=== PATIENT | female | born 1945 | race Caucasian/White ===

== ENCOUNTER → 2016-08-23 | Outpatient (CLI) | payer MEDICARE, OTHER ==
--- NOTE | 2016-08-23 11:57 | WWHP ---
DATE OF SERVICE: 08/23/2016 CHIEF COMPLAINT: The patient is here for her routine gynecologic exam and mammogram. HPI: This is a 71-year-old, G2, P2 with an LMP of 1995. The patient is without gynecologic complaints. 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 MEDICATIONS: 1. Levothyroxine 75 mcg daily. 2. Liothyronine 5 mcg daily. 3. Spironolactone 25 mg daily. 4. Multivitamin half tablet daily. 5. Garlique supplement daily. 6. Vitamin B12, 5000 mcg sublingually daily. 7. Probiotic 1 daily. 8. Iron supplement half tablet daily. 9. Vitamin D3, 2000 units daily. 10. Biotin 1000 mcg daily. 11. Fiber supplement daily. ALLERGIES: ASPIRIN, PENICILLIN and SULFA. 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 SOCIAL HISTORY: She quit smoking in the 1980s and denies alcohol and drug use. 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 REVIEW OF SYSTEMS: Weight has been stable. She denies respiratory, cardiac, or GI problems. She denies maltreatment or falling and also denies any significant problems with urinary leakage. PHYSICAL EXAM: Blood pressure 149/84. Height 5 feet 7 inches. Weight 187 pounds. Temperature 97.9, pulse 70. This is a well-developed, well-nourished white female who is alert and oriented x3 in no acute distress. HEENT is within normal limits. NECK: Supple without mass or thyromegaly. CHEST AND LUNGS: Clear to auscultation. HEART: Regular rate and rhythm. Breasts are without mass or discharge. Axillary exam is negative for adenopathy. BACK: Negative for CVA tenderness. ABDOMEN: Soft, nontender, without palpable masses. PELVIC EXAM: External genitalia reveals mild to moderate atrophy without lesions. Cervix and vagina reveal moderate atrophy without lesions. There is no evidence of prolapse. The uterus is midposition, nongravid size and nontender. There are no palpable adnexal masses or tenderness. Rectovaginal exam is negative for mass or tenderness and is negative for occult blood. EXTREMITIES: Nontender. IMPRESSION: 1. A 71-year-old menopausal female with normal gynecologic exam. 2. History of left salpingo-oophorectomy for mucinous low malignant potential tumor in 2000 with no evidence of recurrence. PLAN: 1. Pap smear was deferred, since she had normal one last year. 2. Self breast examination was discussed. 3. Mammogram will be done today. 4. Tumor marker testing will be done yearly and this will include CEA, CA19-9 and CA 125. These will be drawn today. 5. She states bone density testing was done in 2016 and was normal per the patient. 6. She will return in one year.
[2016-08-23 12:37] LABS: Cancer Anitgen 125 <5.5 U/mL (<35.1)
--- NOTE | 2016-08-24 09:45 | MM ---
Reason for exam: screening (asymptomatic). Last mammogram was performed 1 year and 1 month ago. History: Patient is postmenopausal. Physical Findings: A clinical breast exam by your physician is recommended on an annual basis and results should be correlated with mammographic findings. MG 3D Screening Mammo W/Cad Bilateral CC and MLO view(s) were taken. Prior study comparison: August 04, 2015, bilateral MG screening mammo w CAD. July 31, 2014, bilateral MG diagnostic mammo w CAD LINDEN. The breast tissue is heterogeneously dense. This may lower the sensitivity of mammography. There is no discrete abnormality. No significant changes when compared with prior studies. ASSESSMENT: Negative, BI-RAD 1 RECOMMENDATION: Routine screening mammogram of both breasts in 1 year.
== END ==
LOC: WWCWWP 09:16
PROVIDERS: ATTEND Obstetrics & Gynecology
DX: Z12.31 Encounter for screening mammogram for malignant neoplasm of breast (principal); C56.9 Malignant neoplasm of unspecified ovary
CPT/HCPCS: 86304; 82378; 86301; 77063; 36415; G0202

== ENCOUNTER → 2017-03-31 | Outpatient (CLI) | payer MEDICARE, OTHER ==
[2017-03-31 09:09] LABS: ALT 33 U/L (9-52); AST 30 U/L (14-36); GGT 34 U/L (12-43)
[2017-04-03 15:38] LABS: Hepatitis B Virus DNA Not detected (Not detected); Hepatitis B Virus DNA, Quant <10 IU/mL (<10); Log HBV IU/mL <1.00 (<1.00)
== END | disposition home or self-care (01) ==
LOC: LABWHC1 08:19
PROVIDERS: ATTEND Internal Medicine Infectious Disease
DX: R76.8 Other specified abnormal immunological findings in serum (principal); Z88.1 Allergy status to other antibiotic agents; Z88.8 Allergy status to other drugs, medicaments and biological substances; Z88.2 Allergy status to sulfonamides; Z88.0 Allergy status to penicillin; Z91.018 Allergy to other foods; Z91.048 Other nonmedicinal substance allergy status; Z88.6 Allergy status to analgesic agent
CPT/HCPCS: 36415; 82977; 84450; 84460; 87517

== ENCOUNTER → 2017-09-06 | Outpatient (CLI) | payer MEDICARE, OTHER ==
[2017-09-06 08:08] VITALS: BP 169/93; PULSE 81; TEMP 98.2; BMI 29.2
--- NOTE | 2017-09-06 09:06 | P.HPOB ---
History of Present Illness H&P Date: 09/06/17 Chief Complaint: The patient is here for her routine gynecologic exam and mammogram. This is a 72-year-old with an LMP of 1995. The patient has a history of a low malignant potential ovarian tumor which was removed from the left side in 2000. This was done with a LSO in 2000. She is without gynecologic complaints. Review of Systems The patient states her weight has fluctuated by about 10 pounds over the last year, but her weight is the same as her exam from one year ago. She denies respiratory, cardiac or G.I. problems. She denies maltreatment or falling. she denies any significant problems with urinary leakage. Past Medical History Past Medical History: Hypertension, Thyroid Disorder (Hypothyroidism) Additional Past Medical History / Comment(s): Left ovarian tumor of low malignant potential status post LSO in 2000. Also history of anxiety, irritable bowel syndrome and seasonal allergies. History of Any Multi-Drug Resistant Organisms: None Reported Past Surgical History: Section (Times 2) Additional Past Surgical History / Comment(s): left tube and ovary removed 2000. Colonoscopy in 2010 and 2015. 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 She is and is not sexually active. - Past Family History Father Family Medical History: Myocardial Infarction ([place]) Additional Family Medical History / Comment(s): larynx cancer Mother Family Medical History: Diabetes Mellitus Medications and Allergies Home Medications Medication Instructions Recorded Confirmed Type Cholecalciferol (Vitamin D3) 2,000 unit PO 09/01/17 History [Vitamin D3] Cyanocobalamin [Vitamin B-12] 500 mcg PO 09/01/17 History Garlic 1 each PO 09/01/17 History L.acidoph,Paracasei, B.lactis 1 each PO 09/01/17 History [Probiotic] Levothyroxine Sodium [Synthroid] 75 mcg PO DAILY 09/01/17 09/06/17 History Liothyronine Sodium [Cytomel] 5 mcg PO DAILY 09/01/17 09/06/17 History Multivitamins, Thera [Multivitamin 1 tab PO DAILY 09/01/17 09/06/17 History (formulary)] Spironolactone [Aldactone] 25 mg PO DAILY 09/01/17 09/06/17 History LORazepam [Ativan] 0.5 mg PO DAILY 09/06/17 09/06/17 History Allergies Allergy/AdvReac Type Severity Reaction Status Date / Time aspirin Allergy Unknown Verified 09/06/17 08:18 Penicillins Allergy Unknown Verified 09/06/17 08:18 Sulfa (Sulfonamide Allergy Unknown Verified 09/06/17 08:18 Antibiotics) Exam - Vital Signs Vital signs: Vital Signs Temp Pulse BP 09/06/17 08:02 98.2 F 81 169/93 Intake and Output 09/05/17 09/06/17 09/06/17 22:59 06:59 14:59 Other: Weight 84.822 kg Height 5'7" ,BMI 29.3 ,repeat blood pressure 136/84. This is a well-developed well-nourished white female who is alert and oriented times 3 in no acute distress. HEENT: Within normal limits. NECK: Supple without mass or thyromegaly. CHEST AND LUNGS: Clear to auscultation. HEART: Regular rate and rhythm. BREASTS: Are without mass or discharge. AXILLARY EXAM: Negative for adenopathy. BACK: Negative for CVA tenderness. ABDOMEN: Soft, nontender, without palpable masses. PELVIC EXAM: Normal external genitalia with moderate atrophy. Cervix and vagina appear normal with moderate atrophy. The cervix appears stenotic nearly flush with the vaginal wall secondary to atrophy. There is no unusual discharge. There is no evidence of prolapse. The uterus is small, midposition, nongravid size and nontender. There are no palpable adnexal masses or tenderness. RECTAL EXAM: recto vaginal exam is negative for mass or tenderness and is negative for occult blood. EXTREMITIES: Nontender. IMPRESSION: 1. 71-year-old menopausal female with normal gynecologic exam. 2. History of left ovarian tumor of low malignant potential status post LSO in 2000 with no evidence of recurrence. PLAN: 1. Pap smear was performed. 2. Self breast examination was discussed. 3. Screening mammogram will be done today. 4. Osteoporosis prevention was discussed. Bone density screening will be done today. 5. I have recommended pelvic ultrasound in addition to tumor marker testing because of her history. She is declining the pelvic ultrasound but would like to proceed with the blood tests. This will include CA125, CEA, CA19-9. 6. Her elevated blood pressure was discussed with the patient. I recommended she do home blood pressure checks on a regular basis and follow-up with Dr. Lozano for blood pressure elevations. 6. She will return one year.
--- NOTE | 2017-09-06 13:40 | BD ---
EXAMINATION TYPE: MG DEXA axial skeleton. DATE OF EXAM: 09/06/2017 COMPARISON: NONE CLINICAL HISTORY: Postmenopausal female. Osteoporosis screening. Height: 5 FT 4 IN Weight: 185 FRAX RISK QUESTIONS: Alcohol (3 or more units per day): NO Family History (Parent hip fracture): NO Glucocorticoids (More than 3mos): NO (Ex: prednisone, prednisolone, methylprednisolone, dexamethasone, and hydrocortisone). History of Fracture in Adulthood: NO Secondary Osteoporosis: 1. Type 1 Diabetes: NO 2. Hyperthyroidism: NO 3. Menopause before 45: NO 4. Malnutrition: NO 5. Chronic liver disease: NO Rheumatoid Arthritis: NO Current Tobacco Use: NO RISK FACTORS HISTORY OF: Family History of Osteoporosis: NO Active: YES Postmenopausal woman: AGE 52 MEDICATIONS: Thyroid Medications: YES Which medication: SYNTHROID AND CITOMIL How Lon-6 YEARS Additional Medications: SYNTHROID, CITOMIL, D3 MULTI, ATIVAN, H2O PILL, Additional History: EXAM MEASUREMENTS: Bone mineral densitometry was performed using the [facility]. Bone mineral density as measured about the Lumbar spine is: ----- L1-L4(G/cm2): 1.076 T Score Values are as follows: ----- L2: -1.6 ----- L3: -1.0 ----- L4: -0.3 ----- L1-L4: -0.9 Bone mineral density has: INCREASED 0.8 % since study of: 2010 Bone mineral density about the R hip (g/cm2): 0.925 Bone mineral density about the L hip (g/cm2): 0.940 T Score values are as follows: -----R Neck: -0.8 -----L Neck: -0.7 -----R Total: -0.9 -----L Total: -0.7 Bone mineral density has: INCREASED 0.6 % since study of: 2010 IMPRESSION: Osteopenia (T Score between -2.5 and -1) with regards to the lumbar spine. There is slightly increased risk of fracture and the patient may be considered for treatment. Re-Screen 2-5 years. NOTE: T-SCORE=SD OF THE YOUNG ADULT MEAN.
[2017-09-06 16:46] LABS: Cancer Antigen 19-9 5.5 U/mL (0.0-34.9)
--- NOTE | 2017-09-07 10:13 | MM ---
Reason for exam: screening (asymptomatic). Last mammogram was performed 1 year ago. History: Patient is postmenopausal. Physical Findings: A clinical breast exam by your physician is recommended on an annual basis and results should be correlated with mammographic findings. MG 3D Screening Mammo W/Cad Bilateral CC and MLO view(s) were taken. Prior study comparison: August 23, 2016, bilateral MG 3d screening mammo w/cad. August 04, 2015, bilateral MG screening mammo w CAD. The breast tissue is heterogeneously dense. This may lower the sensitivity of mammography. There is no discrete abnormality. No significant changes when compared with prior studies. ASSESSMENT: Negative, BI-RAD 1 RECOMMENDATION: Routine screening mammogram of both breasts in 1 year.
== END | disposition home or self-care (01) ==
LOC: WWCWWP 07:26
PROVIDERS: ATTEND Obstetrics & Gynecology
DX: Z12.31 Encounter for screening mammogram for malignant neoplasm of breast (principal); M85.88 Other specified disorders of bone density and structure, other site; C56.9 Malignant neoplasm of unspecified ovary; Z78.0 Asymptomatic menopausal state
CPT/HCPCS: 36415; 77063; 77067; 77080; 82378; 86301; 86304

== ENCOUNTER → 2018-10-09 | Outpatient (CLI) | payer MEDICARE, OTHER ==
[2018-10-09 16:03] VITALS: BP 175/82; PULSE 79; RESP 16; TEMP 96.4; BMI 26.4
--- NOTE | 2018-10-09 17:36 | P.HPOB ---
History of Present Illness H&P Date: 10/09/18 Chief Complaint: The patient is here for her routine gynecologic exam and ma mmogram. This is a 73-year-old with an LMP of 1995. The patient is without gynecologic complaints. 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 This was a mucinous tumor of low malignant potential. Review of Systems She has lost about 18 pounds over the last year and she attributes this to eating more salad and dietary changes. She denies respiratory, cardiac and G.I. problems. She denies maltreatment or problems with falling. : she denies any significant problems with urinary leakage, but occasionally has to get the bathroom right way. She attributes this to being put on a diuretic and drinking more water. 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 History of Any Multi-Drug Resistant Organisms: None Reported Past Surgical History: Section Additional Past Surgical History / Comment(s): left tube and ovary removed 2000. Colonoscopy in 2010 and 2015. x2. Past Psychological History: Anxiety Smoking Status: Former smoker Past Alcohol Use History: None Reported Past Drug Use History: None Reported Additional History: Quit smoking in the 1980s. She is and is not seeing any way this time. 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 - Past Family History Brother(s) Additional Family Medical History / Comment(s): larynx cancer Father Family Medical History: Myocardial Infarction ([place]) Additional Family Medical History / Comment(s): larynx cancer Mother Family Medical History: Diabetes Mellitus Son(s) Additional Family Medical History / Comment(s): Pancreatic cancer. Medications and Allergies Home Medications Medication Instructions Recorded Confirmed Type Cholecalciferol (Vitamin D3) 2,000 unit PO 09/01/17 History [Vitamin D3] Cyanocobalamin [Vitamin B-12] 500 mcg PO DAILY 09/01/17 10/09/18 History L.acidoph,Paracasei, B.lactis 1 each PO 09/01/17 History [Probiotic] Levothyroxine Sodium [Synthroid] 75 mcg PO DAILY 09/01/17 10/09/18 History Liothyronine Sodium [Cytomel] 5 mcg PO DAILY 09/01/17 10/09/18 History Multivitamins, Thera [Multivitamin 1 tab PO DAILY 09/01/17 10/09/18 History (formulary)] Spironolactone [Aldactone] 25 mg PO DAILY 09/01/17 10/09/18 History LORazepam [Ativan] 0.5 mg PO DAILY 09/06/17 10/09/18 History Allergies Allergy/AdvReac Type Severity Reaction Status Date / Time aspirin Allergy Unknown Verified 10/09/18 15:57 Penicillins Allergy Unknown Verified 10/09/18 15:57 Sulfa (Sulfonamide Allergy Unknown Verified 10/09/18 15:57 Antibiotics) Exam Vital Signs Temp Pulse Resp BP Pulse Ox 10/09/18 15:59 96.4 F L 79 16 175/82 96 Intake and Output 10/09/18 10/09/18 10/09/18 06:59 14:59 22:59 Other: Weight 76.657 kg Repeat blood pressure 148/80, height 5'7", weight 169 pounds, BMI 26.5. This is a well-developed well-nourished white female who is alert and oriented times 3 in no acute distress. HEENT: Within normal limits. NECK: Supple without mass or thyromegaly. CHEST AND LUNGS: Clear to auscultation. HEART: Regular rate and rhythm. BREASTS: Are without mass or discharge. AXILLARY EXAM: Negative for adenopathy. BACK: Negative for CVA tenderness. ABDOMEN: Soft, nontender, without palpable masses. PELVIC EXAM: Normal external genitalia with moderate atrophy. Cervix and vagina appear normal with moderate atrophy. There is no unusual discharge. There is no evidence of prolapse. The uterus is midposition, nongravid size and nontender. There are no palpable adnexal masses or tenderness. RECTAL EXAM: rectovaginal exam is negative for mass or tenderness and is negative for occult blood. EXTREMITIES: Nontender. IMPRESSION: 1. 73 year old menopausal female with normal gynecologic exam. 2. History of left mucinous low malignant potential tumor status post LSO in 2000 with no evidence of recurrence. PLAN: 1. Pap smear was deferred since she had a normal one on 09/06/2017. 2. Self breast awareness was discussed with the patient. 3. Screening mammogram will be done today. 4. Pelvic ultrasound was recommended yearly. The patient is refusing to pelvic ultrasound if it has to be done transvaginally. This will be ordered as a trans abdominal pelvic ultrasound with no transvaginal component. She understands that better visualization may be obtained transvaginally but she does not want it done transvaginally since it was very painful the last time she had done. 5. Yearly tumor markers will be drawn today and this will include CEA, CA 199, and CA 125. 6. She states she does not get flu shots. I've recommended that she reconsider this in the fall. 7. She states she had a normal bone density test done through Dr. Lozano around 2015. 8.She was advised to return in one year for her annual well woman exam.
--- NOTE | 2018-10-11 10:32 | MM ---
Reason for exam: screening (asymptomatic). Last mammogram was performed 1 year and 1 month ago. History: Patient is postmenopausal. Physical Findings: A clinical breast exam by your physician is recommended on an annual basis and results should be correlated with mammographic findings. MG 3D Screening Mammo W/Cad Bilateral CC and MLO view(s) were taken. Prior study comparison: September 06, 2017, bilateral MG 3d screening mammo w/cad. August 23, 2016, bilateral MG 3d screening mammo w/cad. The breast tissue is heterogeneously dense. This may lower the sensitivity of mammography. No significant changes when compared with prior studies. ASSESSMENT: Benign, BI-RAD 2 RECOMMENDATION: Routine screening mammogram of both breasts in 1 year.
== END | disposition home or self-care (01) ==
LOC: WWCWWP 15:42
PROVIDERS: ATTEND Obstetrics & Gynecology
DX: Z12.31 Encounter for screening mammogram for malignant neoplasm of breast (principal); C56.9 Malignant neoplasm of unspecified ovary
CPT/HCPCS: 77063; 77067; 82378; 86301; 86304

== ENCOUNTER → 2018-11-02 | Outpatient (CLI) | payer MEDICARE, OTHER ==
--- NOTE | 2018-11-02 10:39 | US ---
EXAMINATION TYPE: US pelvic complete DATE OF EXAM: 11/02/2018 COMPARISON: Prior pelvic ultrasound 08/22/2013 CLINICAL HISTORY: C56.9 Ovarian CA. Patient states no symptoms, she says CA 125 was not detected, no family h/o ov ca, she is unaware why doctor ordered test for it. Left oophorectomy TECHNIQUE: TA - ONLY . Transabdominal sonographic images of the pelvis were acquired. Date of LMP: 30+yrs ago EXAM MEASUREMENTS: Uterus: 6.0 x 3.9 x 3.1 cm Endometrial Stripe: 0.5 cm Right Ovary: not seen Left Ovary: not seen Patient tried to fill bladder for 30 additional minutes and refused TV 1. Uterus: Anteverted wnl 2. Endometrium: could only assess transabdominally so difficult to discern actual thickness, but no obvious abnormality noted 3. Right Ovary: not seen due to atrophy and bowel gas 4. Left Ovary: Surgically absent 5. Bilateral Adnexa: wnl 6. Posterior cul-de-sac: wnl IMPRESSION: Transabdominal scan with limitations as described. Postop change.
--- NOTE | 2018-11-06 12:00 | P.PN ---
Progress Note - Text Progress Note Date: 11/06/18 OUTPATIENT FOLLOW-UP NOTE TEST(S)/RESULTS: pelvic ultrasound done on 11/02/2018 was unremarkable. METHOD OF NOTIFICATION: the patient was notified by phone. PATIENT COMMENTS: DIAGNOSIS: unremarkable pelvic ultrasound done because of her history of a low malignant potential ovarian tumor in the past. DISCUSSION: PLAN: She was advised to return in one year for her annual well woman exam.
== END ==
LOC: RADUSWWP 06:47
PROVIDERS: ATTEND Obstetrics & Gynecology
DX: C56.9 Malignant neoplasm of unspecified ovary (principal); Z98.890 Other specified postprocedural states
CPT/HCPCS: 76856

== ENCOUNTER → 2019-01-15 | Outpatient (CLI) | payer MEDICARE, OTHER ==
--- NOTE | 2019-01-15 08:51 | US ---
EXAMINATION TYPE: US abdomen complete DATE OF EXAM: 01/15/2019 COMPARISON: CT CLINICAL HISTORY: Epigastric pain, R10.13. EXAM MEASUREMENTS: Liver Length: 9.3 cm Gallbladder Wall: 0.3 cm CBD: 0.5 cm Spleen: 11.1 cm Right Kidney: 10.2 x 4.1 x 5.1 cm Left Kidney: 10.9 x 4.7 x 5.9 cm Technically difficult study due to overlying bowel gas. Pancreas: visualized portions wnl Liver: wnl Gallbladder: No stones seen Evidence for sonographic Gallo's sign: No CBD: wnl Spleen: wnl Right Kidney: No hydronephrosis or masses seen Left Kidney: No hydronephrosis or masses seen Upper IVC: wnl Abd Aorta: Within normal limits however there is slight ectasia of the distal abdominal aorta measur ing up to 2.4 cm. The liver is homogenous. The intrahepatic portion of the IVC and proximal abdominal aorta are within normal limits. There is no evidence of cholelithiasis. Common bile duct is unremarkable. The visu alized portions of the pancreas are homogenous. The spleen is unremarkable. Kidneys are symmetric a nd free of hydronephrosis. No renal lesions are seen. IMPRESSION: No sonographic evidence of cholelithiasis nor acute cholecystitis. No finding to correspo nd to the patient's abdominal pain.
== END | disposition home or self-care (01) ==
LOC: RADUSWWP 06:44
PROVIDERS: ATTEND Internal Medicine
DX: R10.13 Epigastric pain (principal)
CPT/HCPCS: 76700

== ENCOUNTER → 2019-02-26 | Outpatient (CLI) | payer MEDICARE, OTHER ==
[2019-02-26 18:44] LABS: Amylase 117 U/L (23-121)
[2019-02-26 19:19] LABS: Cancer Antigen 19-9 <1.2 U/mL (0.0-34.9)
[2019-02-27 12:24] LABS: IgG Subclass 3 39.9 mg/dL (11.0-85.0)
== END | disposition home or self-care (01) ==
LOC: LABWHC1 14:27
PROVIDERS: ATTEND Nurse Practitioner
DX: K85.90 Acute pancreatitis without necrosis or infection, unspecified (principal)
CPT/HCPCS: 36415; 82150; 82787; 83690; 86038; 86301

== ENCOUNTER → 2019-06-13 | Outpatient (CLI) | payer MEDICARE, OTHER ==
[2019-06-13 16:12] LABS: Amylase 196 U/L (23-121)
== END | disposition home or self-care (01) ==
LOC: LABWHC1 08:04
PROVIDERS: ATTEND Nurse Practitioner
DX: K85.90 Acute pancreatitis without necrosis or infection, unspecified (principal)
CPT/HCPCS: 36415; 82150; 83690

== ENCOUNTER → 2019-12-27 | Outpatient (CLI) | payer MEDICARE, OTHER | END | disposition home or self-care (01) | LOC: RADUSWWP 07:46 | PROVIDERS: ATTEND Internal Medicine | DX: I73.9 Peripheral vascular disease, unspecified (principal) | CPT/HCPCS: 93923 ==

== ENCOUNTER → 2019-12-31 | Outpatient (CLI) | payer MEDICARE, OTHER ==
[2019-12-31 10:29] VITALS: BP 149/85; PULSE 79; RESP 20; TEMP 98.5
--- NOTE | 2019-12-31 11:22 | P.HPOB ---
History of Present Illness H&P Date: 12/31/19 Chief Complaint: The patient is here for her routine gynecologic exam and ma mmogram. This is a 74-year-old with an LMP of 1995. The patient is without gynecologic complaints and denies any postmenopausal bleeding. 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 Review of Systems Weight has been stable. She denies respiratory, cardiac and G.I. problems. She denies maltreatment or problems with falling. : she denies any significant problems with urinary leakage. 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 History of Any Multi-Drug Resistant Organisms: None Reported Past Surgical History: Section Additional Past Surgical History / Comment(s): left tube and ovary removed 2000. Colonoscopy in 2010 and 2015. x2. Past Psychological History: Anxiety Smoking Status: Former smoker Past Alcohol Use History: None Reported Additional Past Alcohol Use History / Comment(s): Quit smoking in the . Past Drug Use History: None Reported Additional History: She is and is not sexually active. 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 - Past Family History Brother(s) Additional Family Medical History / Comment(s): larynx cancer Father Family Medical History: Myocardial Infarction ([place]) Additional Family Medical History / Comment(s): larynx cancer Mother Family Medical History: Diabetes Mellitus Son(s) Additional Family Medical History / Comment(s): Pancreatic cancer. Sister(s) Family Medical History: Hypertension Medications and Allergies Home Medications Medication Instructions Recorded Confirmed Type Cholecalciferol (Vitamin D3) 2,000 unit PO DAILY 09/01/17 12/31/19 History [Vitamin D3] Cyanocobalamin [Vitamin B-12] 500 mcg PO DAILY 09/01/17 12/31/19 History L.acidoph,Paracasei, B.lactis 1 each PO DAILY 09/01/17 12/31/19 History [Probiotic] Levothyroxine Sodium [Synthroid] 75 mcg PO DAILY 09/01/17 12/31/19 History Liothyronine Sodium [Cytomel] 5 mcg PO DAILY 09/01/17 12/31/19 History Multivitamins, Thera [Multivitamin 1 tab PO DAILY 09/01/17 12/31/19 History (formulary)] Spironolactone [Aldactone] 25 mg PO DAILY 09/01/17 12/31/19 History LORazepam [Ativan] 0.5 mg PO DAILY 09/06/17 12/31/19 History Azelastine HCl [Optivar 0.05% 1 drop BOTH EYES DAILY 12/31/19 12/31/19 History Ophth Soln] Biotin 5,000 mcg PO DAILY 12/31/19 12/31/19 History Propylene Glycol/Peg 400/Pf 1 dropper BOTH EYES DAILY 12/31/19 12/31/19 History [Systane 0.3-0.4% Eye Drops] Vit C/E/Zn/Coppr/Lutein/Zeaxan 1 tab PO DAILY 12/31/19 12/31/19 History [Preservision Areds 2 Softgel] diphenhydrAMINE ELIXIR [Benadryl 0 mg PO DAILY 12/31/19 12/31/19 History Elixir] Allergies Allergy/AdvReac Type Severity Reaction Status Date / Time aspirin Allergy Unknown Verified 12/31/19 10:29 Penicillins Allergy Unknown Verified 12/31/19 10:29 Sulfa (Sulfonamide Allergy Unknown Verified 12/31/19 10:29 Antibiotics) Exam Vital Signs Temp Pulse Resp BP Pulse Ox 12/31/19 10:23 98.5 F 79 20 149/85 96 Intake and Output 12/30/19 12/31/19 12/31/19 22:59 06:59 14:59 Other: Weight 78.018 kg Height 5 feet 4-1/2 inches, weight 172 pounds, BMI 29.1. This is a well-developed well-nourished white female who is alert and oriented times 3 in no acute distress. HEENT: Within normal limits. NECK: Supple without mass or thyromegaly. CHEST AND LUNGS: Clear to auscultation. HEART: Regular rate and rhythm. BREASTS: Are without mass or discharge. AXILLARY EXAM: Negative for adenopathy. BACK: Negative for CVA tenderness. ABDOMEN: Soft, nontender, without palpable masses. PELVIC EXAM: Normal external genitalia with moderate atrophy. Cervix and vagina appear normal with mild to moderate atrophy. There is no unusual discharge. There is no evidence of prolapse. The uterus is midposition, nongravid size and nontender. There are no palpable adnexal masses or tenderness. RECTAL EXAM: Rectovaginal exam is negative for mass or tenderness and is negative for occult blood. EXTREMITIES: Nontender. IMPRESSION: 1. 74-year-old menopausal female who is status post LSO for previous low malignant potential tumor in 2000 with no evidence of recurrence. 2. Normal gynecologic exam. PLAN: 1. Pap smear was performed. We will continue to do this approximately every 2- 3 years because of her history of the low malignant potential ovarian tumor. 2. Self breast awareness was discussed with the patient. 3. Screening mammogram will be done today. 4. Blood tests today will include CEA, CA 199, CA 125. This will be done yearly. 5. Pelvic ultrasound will be scheduled and this will be done yearly. The patient is refusing transvaginal ultrasound because it was extremely uncomfortable when done in the past. The ultrasound done transabdominally. The order slip was given to the patient for this. 6.Osteoporosis prevention was discussed. I have stressed the importance of adequate calcium, vitamin D and regular exercise. Recommended amounts of calcium and vitamin D were also discussed. Our records indicate she states she had a normal bone density test done through Dr. Lozano in 2015. We will plan on repeating this in 2020. 7. She states she does not get flu shots. I have asked her to reconsider this as well as getting a vaccination for COVID-19, when available. 8. She was advised to return in one year for her annual well woman exam.
[2019-12-31 18:47] LABS: Carcinoembryonic Antigen 1.6 ng/mL (0.0-4.9)
[2019-12-31 19:15] LABS: Cancer Antigen 19-9 3.2 U/mL (0.0-34.9)
--- NOTE | 2020-01-01 11:30 | MM ---
Reason for exam: screening (asymptomatic). Last mammogram was performed 1 year and 3 months ago. History: Patient is postmenopausal. Physical Findings: A clinical breast exam by your physician is recommended on an annual basis and results should be correlated with mammographic findings. MG 3D Screening Mammo W/Cad Bilateral CC and MLO view(s) were taken. Prior study comparison: October 09, 2018, bilateral MG 3d screening mammo w/cad. September 06, 2017, bilateral MG 3d screening mammo w/cad. The breast tissue is heterogeneously dense. This may lower the sensitivity of mammography. There is no discrete abnormality. No significant changes when compared with prior studies. ASSESSMENT: Negative, BI-RAD 1 RECOMMENDATION: Routine screening mammogram of both breasts in 1 year.
--- NOTE | 2020-01-07 17:56 | P.PN ---
Progress Note - Text Progress Note Date: 01/07/20 OUTPATIENT FOLLOW-UP NOTE TEST(S)/RESULTS: Pap smear from 12/31/2019 was negative. Mammogram was benign from 12/31/2019. Pelvic ultrasound done on 01/02/2020 was unremarkable and tumor markers on 12/31/2019 included normal CEA, normal CA 199 and normal CA- 125. The Pap smear showed a shift in the bacteria suggestive of bacterial vaginosis. METHOD OF NOTIFICATION: A message with the results except for the shift in the vaginal bacteria were left on the patient's voicemail. PATIENT COMMENTS: DIAGNOSIS: Negative Pap smear, benign mammogram, negative pelvic ultrasound, and normal tumor markers. DISCUSSION: The patient was asked to call back so I can talk to her about the shift in the bacteria in the vagina. PLAN: She was advised to return in one year for her annual well woman exam.
--- NOTE | 2020-01-08 09:27 | P.PN ---
Progress Note - Text Progress Note Date: 01/08/20 OUTPATIENT FOLLOW-UP NOTE TEST(S)/RESULTS: Test results from 12/31/2019 include negative Pap smear. A comment was made saying there was a shift in the vaginal walt suggestive of bacterial vaginosis mammogram was negative. CEA, CA 199, and a CA-125 for all negative. Pelvic ultrasound done on 01/02/2020 was unremarkable. METHOD OF NOTIFICATION: The patient was notified by phone. PATIENT COMMENTS: The patient denies any vaginal odor or vaginal discharge. She has been experiencing some vulvar pruritus. DIAGNOSIS: Negative Pap smear, benign mammogram, negative pelvic ultrasound and normal tumor markers. No vaginal odor or vaginal discharge. Vulvar pruritus. DISCUSSION: A prescription for Kenalog 0.1% cream will be sent to [facility] on . She will use this when necessary for vulvar pruritus. She was instructed to call if she continues to have vulvar pruritus after 2 weeks. We can reevaluate it at that time if this is the case. PLAN: She was advised to return in one year for her annual well woman exam and as needed.
== END | disposition home or self-care (01) ==
LOC: WWCWWP 10:15
PROVIDERS: ATTEND Obstetrics & Gynecology
DX: Z12.31 Encounter for screening mammogram for malignant neoplasm of breast (principal); Z85.43 Personal history of malignant neoplasm of ovary; C56.9 Malignant neoplasm of unspecified ovary
CPT/HCPCS: 36415; 77063; 77067; 82378; 86301; 86304

== ENCOUNTER → 2020-01-02 | Outpatient (CLI) | payer MEDICARE, OTHER ==
--- NOTE | 2020-01-02 10:59 | US ---
EXAMINATION TYPE: US pelvic complete DATE OF EXAM: 01/02/2020 COMPARISON: US CLINICAL HISTORY: Z85.43 HX OF MUCINOUS OVARIAN CA. TECHNIQUE: Transabdominal (TA). Transabdominal sonographic images of the pelvis were acquired per o rder; C section x 2 Date of LMP: age 40's. EXAM MEASUREMENTS: Uterus: 5.9 x 3.7 x 2.0 cm Endometrial Stripe: 0.2 cm Right Ovary: 1.4 1.5 x 0.8 cm Left Ovary: surgically removed 1. Uterus: Anteverted 2. Endometrium: thickness wnl for post menopause 3. Right Ovary: wnl 4. Left Ovary: Surgically absent 5. Bilateral Adnexa: wnl 6. Posterior cul-de-sac: wnl IMPRESSION: Uterus is atrophic. Left ovary is not seen.
== END | disposition home or self-care (01) ==
LOC: RADUSWWP 08:01
PROVIDERS: ATTEND Obstetrics & Gynecology
DX: N85.8 Other specified noninflammatory disorders of uterus (principal)
CPT/HCPCS: 76856

== ENCOUNTER → 2020-02-05 | Outpatient (CLI) | payer MEDICARE, OTHER ==
--- NOTE | 2020-02-06 06:56 | NM ---
Nuclear medicine hepatobiliary scan. HISTORY: Pain. DOSAGE: The patient received 8 ounces of ensure plus and 3 mCi of Technetium 99m Choletec. FINDINGS: There is normal hepatic extraction. The gallbladder is seen by 20 minutes. There is bilia ry to bowel clearance by 45 minutes. Ejection fraction is 76%. IMPRESSION: 1. Normal hepatobiliary exam
== END | disposition home or self-care (01) ==
LOC: RADNMMAIN 13:32
PROVIDERS: ATTEND Internal Medicine
DX: R10.9 Unspecified abdominal pain (principal)
CPT/HCPCS: 78226; A9537

== ENCOUNTER → 2021-02-02 | Outpatient (CLI) | payer MEDICARE, OTHER ==
[2021-02-02 09:24] VITALS: BP 148/83; PULSE 68; RESP 18; TEMP 98
--- NOTE | 2021-02-02 10:20 | P.HPOB ---
History of Present Illness H&P Date: 02/02/21 Chief Complaint: The patient is here for her routine gynecologic exam and ma mmogram. This is a 75-year-old with an LMP of 1995. The patient states she does use the Kenalog cream when necessary for vulvar pruritus and this is very helpful. She believes certain toilet papers seem to irritate the vulva. She is otherwise without gynecologic complaints and denies any postmenopausal bleeding. She does seem to have to urinate fairly frequently during the day and can u rinate at up to about 15 times per day. She denies any dysuria. She occasionally will have small amount of leakage if she does not get to the bathroom in time. Review of Systems The patient's weight has been stable over the last year. She denies respiratory, cardiac, or G.I. problems. : As in the HPI. 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 History of Any Multi-Drug Resistant Organisms: None Reported Past Surgical History: Section Additional Past Surgical History / Comment(s): left tube and ovary removed 2000. Colonoscopy in 2010 and 2016. x2. Past Psychological History: Anxiety Smoking Status: Former smoker Past Alcohol Use History: None Reported Additional Past Alcohol Use History / Comment(s): Quit smoking in the . Past Drug Use History: None Reported Additional History: She is and is not seeing anybody at this time and is not sexually active. 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 - Past Family History Brother(s) Additional Family Medical History / Comment(s): larynx cancer Father Family Medical History: Myocardial Infarction ([place]) Additional Family Medical History / Comment(s): larynx cancer Mother Family Medical History: Diabetes Mellitus Son(s) Additional Family Medical History / Comment(s): Pancreatic cancer. Sister(s) Family Medical History: Hypertension Medications and Allergies Home Medications Medication Instructions Recorded Confirmed Type Cholecalciferol (Vitamin D3) 2,000 unit PO DAILY 09/01/17 02/02/21 History [Vitamin D3] Cyanocobalamin [Vitamin B-12] 500 mcg PO DAILY 09/01/17 02/02/21 History Levothyroxine Sodium [Synthroid] 75 mcg PO DAILY 09/01/17 02/02/21 History Liothyronine Sodium [Cytomel] 5 mcg PO DAILY 09/01/17 02/02/21 History Multivitamins, Thera [Multivitamin 1 tab PO DAILY 09/01/17 02/02/21 History (formulary)] Spironolactone [Aldactone] 25 mg PO DAILY 09/01/17 02/02/21 History LORazepam [Ativan] 0.5 mg PO DAILY 09/06/17 02/02/21 History Azelastine HCl [Optivar 0.05% 1 drop BOTH EYES DAILY 12/31/19 02/02/21 History Ophth Soln] Vit C/E/Zn/Coppr/Lutein/Zeaxan 1 tab PO DAILY 12/31/19 02/02/21 History [Preservision Areds 2 Softgel] Triamcinolone 0.1% Cream [Kenalog 1 applicatio TOPICAL BID PRN #30 gm 01/08/20 02/02/21 Rx 0.1% Cream] Allergies Allergy/AdvReac Type Severity Reaction Status Date / Time aspirin Allergy Unknown Verified 02/02/21 09:10 Penicillins Allergy Unknown Verified 02/02/21 09:10 Sulfa (Sulfonamide Allergy Unknown Verified 02/02/21 09:10 Antibiotics) Exam Vital Signs Temp Pulse Resp BP Pulse Ox 02/02/21 09:10 98.0 F 68 18 148/83 97 Intake and Output 02/01/21 02/02/21 02/02/21 22:59 06:59 14:59 Other: Weight 78.925 kg Height 5 feet 5 inches, weight 174 pounds, BMI 29.0. This is a well-developed well-nourished white female who is alert and oriented times 3 in no acute distress. HEENT: Within normal limits. NECK: Supple without mass or thyromegaly. CHEST AND LUNGS: Clear to auscultation. HEART: Regular rate and rhythm. BREASTS: Are without mass or discharge. AXILLARY EXAM: Negative for adenopathy. BACK: Negative for CVA tenderness. ABDOMEN: Soft, nontender, without palpable masses. PELVIC EXAM: External genitalia reveals mild to moderate atrophy. There is a well demarcated area on the vulva bilaterally which shows small amount of pallor with minimal erythema. There are no focal lesions. Cervix and vagina appear normal with mild to moderate atrophy. There is no unusual discharge. There is no evidence of prolapse. The uterus is midposition, nongravid size and nontender. There are no palpable adnexal masses or tenderness. RECTAL EXAM: Rectovaginal exam is negative for mass or tenderness and is negative for occult blood. EXTREMITIES: Nontender. IMPRESSION: 1. 75-year-old menopausal female with occasional vulvar pruritus improved with Kenalog cream. 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 2. History of left ovarian mucinous tumor of low malignant potential status post removal in 2000. No evidence of recurrence. PLAN: 1. Pap smear was deferred since she had a normal one on 12/31/2019. We will continue to do this every 2-3 years because of her history of low malignant potential ovarian tumor. 2. Self breast awareness was discussed with the patient. We have reviewed symptoms associated with inflammatory breast cancer. 3. Screening mammogram will be done today. 4. Osteoporosis prevention was discussed. I have stressed the importance of adequate calcium, vitamin D and regular exercise. Recommended amounts of calcium and vitamin D were also discussed. I have recommended bone density testing since it has been about 5 years since her last one. The order slip was given to the patient for this. 5. I have recommended pelvic ultrasound because of her history of the low malignant potential ovarian tumor. The order slip was given to the patient for this. Blood tests will include CEA, CA 199, CA-125. The order slip was also given to the patient for this. 6. She will continue to use Kenalog cream as needed. The electronic prescription will be sent to [facility] on . She was advised to return in one year for her annual well woman exam.
[2021-02-02 15:54] LABS: Carcinoembryonic Antigen 1.8 ng/mL (0.0-4.9)
[2021-02-02 18:06] LABS: Cancer Antigen 19-9 <1.2 U/mL (0.0-34.9)
--- NOTE | 2021-02-03 11:42 | MM ---
Reason for exam: screening (asymptomatic). Last mammogram was performed 1 year and 1 month ago. History: Patient is postmenopausal. Physical Findings: A clinical breast exam by your physician is recommended on an annual basis and results should be correlated with mammographic findings. MG 3D Screening Mammo W/Cad Bilateral CC and MLO view(s) were taken. Prior study comparison: December 31, 2019, bilateral MG 3d screening mammo w/cad. October 09, 2018, bilateral MG 3d screening mammo w/cad. The breast tissue is heterogeneously dense. This may lower the sensitivity of mammography. There are benign appearing round calcifications bilaterally. There is no discrete abnormality. ASSESSMENT: Benign, BI-RAD 2 RECOMMENDATION: Routine screening mammogram of both breasts in 1 year.
== END | disposition home or self-care (01) ==
LOC: WWCWWP 09:01
PROVIDERS: ATTEND Obstetrics & Gynecology
DX: Z12.31 Encounter for screening mammogram for malignant neoplasm of breast (principal); Z85.43 Personal history of malignant neoplasm of ovary
CPT/HCPCS: 77063; 77067; 82378; 86301; 86304

== ENCOUNTER → 2021-02-15 | Outpatient (CLI) | payer MEDICARE, OTHER ==
--- NOTE | 2021-02-15 15:39 | US ---
EXAMINATION TYPE: US pelvic complete DATE OF EXAM: 02/15/2021 COMPARISON: IS 01/02/20, 11/02/18, 08/22/13 CLINICAL HISTORY: Z85.43 HX OVRIAN CA. Patient states years ago a "precancerous" mass removed along w ith left tube and ovary. TECHNIQUE: Transabdominal (TA). Transabdominal sonographic images of the pelvis were acquired. Tra nsvaginal sonographic images were medically necessary to better assess the following anatomy: Patient refuses TV Date of LMP: In her 40's EXAM MEASUREMENTS: Uterus: 5.6 x 3.5 x 2.0 cm Endometrial Stripe: 0.4 cm Right Ovary: Not seen cm Left Ovary: Surgically absent per pt. Not seen cm 1. Uterus: Anteverted atrophic. 2. Endometrium: wnl 3. Right Ovary: Not seen 4. Left Ovary: Not seen 5. Bilateral Adnexa: wnl 6. Posterior cul-de-sac: wnl IMPRESSION: Atrophic uterus. Otherwise unremarkable study.
== END | disposition home or self-care (01) ==
LOC: RADUSWWP 14:33
PROVIDERS: ATTEND Obstetrics & Gynecology
DX: N85.8 Other specified noninflammatory disorders of uterus (principal); Z85.43 Personal history of malignant neoplasm of ovary
CPT/HCPCS: 76856

== ENCOUNTER → 2021-03-05 | Outpatient (CLI) | payer MEDICARE, OTHER ==
--- NOTE | 2021-03-08 08:37 | BD ---
EXAMINATION TYPE: Axial Bone Density DATE OF EXAM: 03/05/2021 COMPARISON: 2017 CLINICAL HISTORY: post menopausal Height: 5'4 Weight: 169 FRAX RISK QUESTIONS: Secondary Osteoporosis: 3. Menopause before 45: y RISK FACTORS HISTORY OF: Postmenopausal woman: y MEDICATIONS: Prednisone or other steroids: y How Lon months Thyroid Medications: Which medication: generic synthroid, citamel How Lon years Additional Medications: water pill, blood pressure Additional History: EXAM MEASUREMENTS: Bone mineral densitometry was performed using the [employer] System. Bone mineral density as measured about the Lumbar spine is: ----- L1-L4(G/cm2): 1.092 T Score Values are as follows: ----- L2: -1.0 ----- L3: -1.2 ----- L4: -0.3 ----- L1-L4: -0.7 Bone mineral density has: Increased 1.1% since study of: 09/06/2017 Bone mineral density about the R hip (g/cm2):0.883 Bone mineral density about the L hip (g/cm2): 0.906 T Score values are as follows: -----R Neck: -1.1 -----L Neck: -0.9 -----R Total: -1.1 -----L Total: -0.9 Bone mineral density has: Decreased -2.4% since study of: 09/06/2017 IMPRESSION: Osteopenia right hip NOTE: T-SCORE=SD OF THE YOUNG ADULT MEAN.
--- NOTE | 2021-03-10 10:23 | P.PN ---
Progress Note - Text Progress Note Date: 03/10/21 OUTPATIENT FOLLOW-UP NOTE TEST(S)/RESULTS: Bone density test done on 03/05/2021 shows osteopenia which is fairly stable from her previous bone density test. METHOD OF NOTIFICATION: The patient was notified by phone. PATIENT COMMENTS: DIAGNOSIS: Osteopenia DISCUSSION: I have stressed the importance of regular exercise, adequate calcium, and vitamin D. PLAN: Repeat bone density test in approximately 3 years.
== END | disposition home or self-care (01) ==
LOC: RADBDWWP 13:09
PROVIDERS: ATTEND Obstetrics & Gynecology
DX: M85.851 Other specified disorders of bone density and structure, right thigh (principal)
CPT/HCPCS: 77080

== ENCOUNTER → 2021-04-30 | Outpatient (CLI) | payer MEDICARE, OTHER ==
--- NOTE | 2021-05-06 04:47 | MR ---
EXAMINATION TYPE: MR MRCP DATE OF EXAM: 04/30/2021 COMPARISON: 11/23/2020 HISTORY: Cyst of pancreas Multiplanar multiecho imaging of the abdomen without contrast. There are MRCP images. Liver has normal size and contour. The intrahepatic bile that are not dilated. There is mild ectasia of the common bile duct up to 12 mm. I see no filling defects. There are small cystic areas in the pa ncreatic head. These measure up to 5 mm. There is conglomeration of cysts in the pancreatic head that overall measures 2 cm. The pancreatic duct measures up to 6 mm. I see no evidence of a solid pancrea tic mass. There is no adrenal mass. Kidneys show no hydronephrosis. There is 2 cm cortical cyst lower pole righ t kidney. There is no sign of retroperitoneal adenopathy. There is no ascites. Gallbladder has normal size and contour. There is no gallbladder wall thickening.Spleen is intact. There is no evidence of mesenteric edema. Lung bases show no sign of pleural effusion. IMPRESSION: There is conglomeration of cysts in the pancreatic head not changed compared to old exam and consiste nt with multiple pseudocysts and chronic pancreatitis. Mild ectasia of the mid and distal pancreatic duct also consistent with chronic pancreatitis. No evidence of solid pancreatic mass. Mild ectasia of the common bile duct without change. No dilation of the intrahepatic bile ducts.
== END | disposition home or self-care (01) ==
LOC: RADMRIMAIN 05:55
PROVIDERS: ATTEND Family Medicine
DX: K86.2 Cyst of pancreas (principal)
CPT/HCPCS: 74181

== ENCOUNTER → 2022-04-19 | Outpatient (CLI) | payer MEDICARE, OTHER ==
[2022-04-19 10:27] VITALS: BP 172/76; PULSE 76; RESP 17; TEMP 97.6
--- NOTE | 2022-04-19 11:31 | P.HPOB ---
History of Present Illness H&P Date: 04/19/22 Chief Complaint: The patient is here for her routine gynecologic exam and ma mmogram. This is a 76-year-old with an LMP of 1995. The patient states she infrequently uses the Kenalog cream for vulvar pruritus. She has found that avoiding wheat in her diet seems to significantly help with the vulvar pruritus. She is otherwise without gynecologic complaints. She denies any postmenopausal bleeding. 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 She has been followed with yearly tumor markers and yearly ultrasounds. She states that her PCP ordered tumor markers. She is uncertain if these are the tumor markers that I ordered yearly. She will get me a copy of these test results. Review of Systems The patient's weight has been stable over the last year. She states she had gained some weight earlier this year when she was put on steroids after her cataract surgery. She denies respiratory, cardiac, or G.I. problems. 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 History of Any Multi-Drug Resistant Organisms: None Reported Past Surgical History: Section Additional Past Surgical History / Comment(s): left tube and ovary removed 2000. Colonoscopy in 2010 and 2015. x2. Bilateral cataract surgery. Past Psychological History: Anxiety Smoking Status: Former smoker Past Alcohol Use History: None Reported Additional Past Alcohol Use History / Comment(s): Quit smoking in the . Past Drug Use History: None Reported Additional History: She is and is not seeing anybody at this time and is not sexually active. 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 - Past Family History Brother(s) Additional Family Medical History / Comment(s): larynx cancer Father Family Medical History: Myocardial Infarction ([place]) Additional Family Medical History / Comment(s): larynx cancer Mother Family Medical History: Diabetes Mellitus Son(s) Additional Family Medical History / Comment(s): Pancreatic cancer. Sister(s) Family Medical History: Hypertension Medications and Allergies Home Medications Medication Instructions Recorded Confirmed Type Cholecalciferol (Vitamin D3) 2,000 unit PO DAILY 09/01/17 04/19/22 History [Vitamin D3] Cyanocobalamin [Vitamin B-12] 500 mcg PO DAILY 09/01/17 04/19/22 History Levothyroxine Sodium [Synthroid] 75 mcg PO DAILY 09/01/17 04/19/22 History Liothyronine Sodium [Cytomel] 5 mcg PO DAILY 09/01/17 04/19/22 History Multivitamins, Thera [Multivitamin 1 tab PO DAILY 09/01/17 04/19/22 History (formulary)] Spironolactone [Aldactone] 25 mg PO DAILY 09/01/17 04/19/22 History LORazepam [Ativan] 0.5 mg PO DAILY 09/06/17 04/19/22 History Azelastine HCl [Optivar 0.05% 1 drop BOTH EYES DAILY 12/31/19 04/19/22 History Ophth Soln] Vit C/E/Zn/Coppr/Lutein/Zeaxan 1 tab PO DAILY 12/31/19 04/19/22 History [Preservision Areds 2 Softgel] Triamcinolone 0.1% Cream [Kenalog 1 applicatio TOPICAL BID PRN #30 gm 02/02/21 04/19/22 Rx 0.1% Cream] Allergies Allergy/AdvReac Type Severity Reaction Status Date / Time aspirin Allergy Unknown Verified 04/19/22 10:21 Milk Containing Products Allergy Itching Unverified 04/19/22 10:21 [Dairy] Penicillins Allergy Unknown Verified 04/19/22 10:21 soy Allergy Itching Unverified 04/19/22 10:21 Sulfa (Sulfonamide Allergy Unknown Verified 04/19/22 10:21 Antibiotics) wheat Allergy Rash/Hives Unverified 04/19/22 10:21 Exam Vital Signs Temp Pulse Resp BP Pulse Ox 04/19/22 10:23 97.6 F 76 17 172/76 97 Intake and Output 04/18/22 04/19/22 04/19/22 22:59 06:59 14:59 Other: Weight 78.925 kg Height 5 feet 7 inches, weight 174 pounds, BMI 27.3. This is a well-developed well-nourished white female who is alert and oriented times 3 in no acute distress. HEENT: Within normal limits. NECK: Supple without mass or thyromegaly. CHEST AND LUNGS: Clear to auscultation. HEART: Regular rate and rhythm. BREASTS: Are without mass or discharge. AXILLARY EXAM: Negative for adenopathy. BACK: Negative for CVA tenderness. ABDOMEN: Soft, nontender, without palpable masses. PELVIC EXAM: External genitalia reveals mild to moderate atrophy. There is a well demarcated area of the vulva which shows mild pallor without significant erythema on the inner side of the labia majora. There is no excoriation and no focal lesions. Cervix and vagina appear normal with moderate atrophy. There is no unusual discharge. There is no evidence of prolapse. The uterus is midposition, nongravid size and nontender. There are no palpable adnexal masses or tenderness. RECTAL EXAM: Rectovaginal exam is negative for mass or tenderness and is negative for occult blood. EXTREMITIES: Nontender. IMPRESSION: 1. 76-year-old menopausal female status post left salpingo-oophorectomy for a left ovarian mucinous tumor of low malignant potential in 2000. Normal gynecologic exam. 2. 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 3. Elevated blood pressure. PLAN: 1. Pap smear was performed. Pap smears will be continued every 2-3 years because of her history of the low malignant potential ovarian tumor. 2. Self breast awareness was discussed with the patient. We have also discussed symptoms associated with inflammatory breast cancer. 3. Screening mammogram was done today. 4. The patient states she believes her PCP recently ordered tumor markers, but is uncertain as to which ones were done. She states she has the lab reports in her car and she will bring these in and have these copied for me. We have been doing yearly blood tests to include CA-125, CEA, and CA 199. If these were not done by her PCP, in order slip will be given to her for the ones that were not done. 5. Yearly pelvic ultrasound was recommended and the order slip was given to the patient for this. 6.Osteoporosis prevention was discussed. Bone density testing was last done on 03/05/2021. We will plan on repeating this after 3 years. 7. Her elevated blood pressure was discussed. I have recommended that she check her own blood pressures at home since she does have a cuff. She will follow up with her PCP for blood pressure elevations. 8. She will use the Kenalog cream as needed for vulvar pruritus. She states she does have the cream at home and is declining a prescription today. She will call if she needs this renewed. 9. She was advised to return in one year for her annual well woman exam and as needed.
--- NOTE | 2022-04-20 08:12 | MM ---
Reason for Exam: Screening (asymptomatic). Last mammogram was performed 1 year(s) and 3 month(s) ago. Patient History: Menarche at age 18. First Full-Term at age 18. Left ovary removed at age 56. Postmenopausal. Risk Values: Rupali 5 year model risk: 1.1%. NCI Lifetime model risk: 2.2%. Prior Study Comparison: 10/09/2018 Bilateral Screening Mammogram, [facility]. 12/31/2019 Bilateral Screening Mammogram, [facility]. 02/02/2021 Bilateral Screening Mammogram, [facility]. Tissue Density: The breast tissue is heterogeneously dense. This may lower the sensitivity of mammography. Findings: Analyzed By CAD. There is no suspicious group of microcalcifications or new suspicious mass in either breast. Overall Assessment: Negative, BI-RAD 1 Management: Screening Mammogram of both breasts in 1 year. A clinical breast exam by your physician is recommended on an annual basis and results should be correlated with mammographic findings. Electronically signed and approved by: Aidan Morrison M.D. Radiologis
--- NOTE | 2022-04-27 13:58 | P.PN ---
Progress Note - Text Progress Note Date: 04/27/22 Tumor marker testing was done on 03/31/2022 as ordered by her PCP. CA-125, CA 199, and CEA were all within normal limits.
== END ==
LOC: WWCWWP 09:18
PROVIDERS: ATTEND Obstetrics & Gynecology
DX: Z12.31 Encounter for screening mammogram for malignant neoplasm of breast (principal); Z01.419 Encounter for gynecological examination (general) (routine) without abnormal findings; Z78.0 Asymptomatic menopausal state; Z87.891 Personal history of nicotine dependence; Z88.6 Allergy status to analgesic agent; Z88.0 Allergy status to penicillin; Z88.2 Allergy status to sulfonamides; R03.0 Elevated blood-pressure reading, without diagnosis of hypertension; Z90.721 Acquired absence of ovaries, unilateral; Z91.011 Allergy to milk products; Z91.018 Allergy to other foods
CPT/HCPCS: 77063; 77067

== ENCOUNTER → 2022-05-11 | Outpatient (CLI) | payer MEDICARE, OTHER ==
--- NOTE | 2022-04-26 18:15 | P.PN ---
Progress Note - Text Progress Note Date: 04/26/22 OUTPATIENT FOLLOW-UP NOTE TEST(S)/RESULTS: test results from 04/19/2022 include negative Pap smear and benign mammogram. METHOD OF NOTIFICATION: a message with these results was left on the patient's voice mail. PATIENT COMMENTS: DIAGNOSIS: negative Pap smear and benign mammogram. DISCUSSION: The patient was instructed to make an appointment for her pelvic ultrasound. I had given her an order slip at her recent appointment. PLAN: the patient is to return in one year for her annual well woman exam.
--- NOTE | 2022-05-11 07:31 | US ---
EXAMINATION TYPE: US pelvic complete DATE OF EXAM: 05/11/2022 COMPARISON: US 2020 CLINICAL HISTORY: Z85.43 PERSONAL HISTORY OF MALIGNANT NEOPLASM OF O. Hx 2 C sections. Left tube and ovary removed, patient states precancerous mass removed from the left pelvis. . TECHNIQUE: Transabdominal (TA). Transabdominal sonographic images of the pelvis were acquired. Tra nsvaginal sonographic images were deferred, patient refused. Date of LMP: in her 40s. EXAM MEASUREMENTS: Uterus: 7.0 x 3.1 x 2.1 cm, prevoid. Measured post void and uterine length was 5.8 cm. Full bladder appeared to possibly falsely lengthen the uterus. Endometrial Stripe: 0.36 cm Right Ovary: Not seen cm Left Ovary: Surgically absent 1. Uterus: Anteverted 2. Endometrium: Measures 0.36 cm. 3. Right Ovary: Not see 4. Left Ovary: Surgically absent 5. Bilateral Adnexa: Appear wnl 6. Posterior cul-de-sac: Appears wnl IMPRESSION: Nonvisualization of the ovaries. No adnexal masses seen.
== END | disposition home or self-care (01) ==
LOC: RADUSWWP 06:34
PROVIDERS: ATTEND Obstetrics & Gynecology
DX: Z85.43 Personal history of malignant neoplasm of ovary (principal)
CPT/HCPCS: 76856

== ENCOUNTER → 2023-05-16 | Outpatient (CLI) | payer MEDICARE, OTHER ==
--- NOTE | 2023-05-17 09:45 | MM ---
Reason for Exam: Screening (asymptomatic). Last screening mammogram was performed 12 month(s) ago. Patient History: Menarche at age 18. First Full-Term at age 18. Left ovary removed at age 56. Postmenopausal. Risk Values: Rupali 5 year model risk: 1.1%. NCI Lifetime model risk: 1.9%. Prior Study Comparison: 12/31/2019 Bilateral Screening Mammogram, [facility]. 02/02/2021 Bilateral Screening Mammogram, [facility]. 04/19/2022 Bilateral MG 3D screening mammo w/cad, [facility]. Tissue Density: The breast tissue is heterogeneously dense. This may lower the sensitivity of mammography. Findings: Analyzed By CAD. There is no suspicious group of microcalcifications or new suspicious mass. Overall Assessment: Negative, BI-RAD 1 Management: Screening Mammogram of both breasts in [address] [facility] will attempt to contact patient to return for supplemental views and ultrasound if indicated. Patient should continue monthly self-breast exams. A clinical breast exam by your physician is recommended on an annual basis. This exam should not preclude additional follow-up of suspicious palpable abnormalities. Note on Rupali scores and lifetime risk: 1. A Rupali score greater than 3% is considered moderate risk. If this is the case, consider specialist referral to assess eligibility for a risk reducing agent. 2. If overall lifetime risk for the development of breast cancer is 20% or higher, the patient may qualify for future screening with alternating mammogram and breast MRI. Electronically signed and approved by: Robb Marquez DO
== END | disposition home or self-care (01) ==
LOC: RADMAMWWP 13:36
PROVIDERS: ATTEND Family Medicine
DX: Z12.31 Encounter for screening mammogram for malignant neoplasm of breast (principal); Z78.0 Asymptomatic menopausal state
CPT/HCPCS: 77063; 77067

== ENCOUNTER → 2023-05-16 | Outpatient (CLI) | payer MEDICARE, OTHER ==
[2023-05-16 14:08] VITALS: BP 168/95; PULSE 83; RESP 16; TEMP 97.9
--- NOTE | 2023-05-16 14:42 | P.HPOB ---
History of Present Illness H&P Date: 05/16/23 Chief Complaint: The patient is here for her routine gynecologic exam and ma mmogram. This is a 78-year-old with an LMP of 1995. The patient is without gynecologic complaints. She has a history of a previous left oophorectomy in 2000 for a mucinous tumor of low malignant potential. She has been followed by regular pelvic ultrasounds and tumor marker testing. She believes her PCP has already drawn the tumor markers. She will get me a copy. Review of Systems The patient has gained 3 pounds over the last year. She denies respiratory, cardiac, or G.I. problems. 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 History of Any Multi-Drug Resistant Organisms: None Reported Past Surgical History: Section Additional Past Surgical History / Comment(s): left tube and ovary removed 2000. Colonoscopy in 2010 and 2015. x2. Bilateral cataract surgery. Past Psychological History: Anxiety (PHQ-2 questionaire was given and she scores 0. This is a negative screen for depression.) Smoking Status: Former smoker Past Alcohol Use History: None Reported Additional Past Alcohol Use History / Comment(s): Quit smoking in the . Past Drug Use History: None Reported Additional History: She is and has not been sexually active for many years. 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 - Past Family History Brother(s) Additional Family Medical History / Comment(s): larynx cancer Father Family Medical History: Myocardial Infarction ([place]) Additional Family Medical History / Comment(s): larynx cancer Mother Family Medical History: Diabetes Mellitus Son(s) Additional Family Medical History / Comment(s): Pancreatic cancer. Sister(s) Family Medical History: Hypertension Medications and Allergies Home Medications Medication Instructions Recorded Confirmed Type Cholecalciferol (Vitamin D3) 2,000 unit PO DAILY 09/01/17 05/16/23 History [Vitamin D3] Cyanocobalamin [Vitamin B-12] 500 mcg PO DAILY 09/01/17 05/16/23 History Levothyroxine Sodium [Synthroid] 75 mcg PO DAILY 09/01/17 05/16/23 History Liothyronine Sodium [Cytomel] 5 mcg PO DAILY 09/01/17 05/16/23 History Multivitamins, Thera [Multivitamin 1 tab PO DAILY 09/01/17 05/16/23 History (formulary)] Spironolactone [Aldactone] 25 mg PO DAILY 09/01/17 05/16/23 History LORazepam [Ativan] 0.5 mg PO DAILY 09/06/17 05/16/23 History Azelastine HCl [Optivar 0.05% 1 drop BOTH EYES DAILY 12/31/19 05/16/23 History Ophth Soln] Vit C/E/Zn/Coppr/Lutein/Zeaxan 1 tab PO DAILY 12/31/19 05/16/23 History [Preservision Areds 2 Softgel] Triamcinolone 0.1% Cream [Kenalog 1 applicatio TOPICAL BID PRN #30 gm 02/02/21 05/16/23 Rx 0.1% Cream] Cetirizine HCl [Zyrtec] 5 mg PO DAILY 05/16/23 05/16/23 History Allergies Allergy/AdvReac Type Severity Reaction Status Date / Time aspirin Allergy Unknown Verified 05/16/23 13:39 Milk Containing Products Allergy Itching Unverified 05/16/23 13:39 (Dairy) [Dairy] Penicillins Allergy Unknown Verified 05/16/23 13:39 soy Allergy Itching Unverified 05/16/23 13:39 Sulfa (Sulfonamide Allergy Unknown Verified 05/16/23 13:39 Antibiotics) wheat Allergy Rash/Hives Unverified 05/16/23 13:39 Exam Vital Signs Temp Pulse Resp BP Pulse Ox 05/16/23 13:42 97.9 F 83 16 168/95 96 Intake and Output 05/15/23 05/16/23 05/16/23 22:59 06:59 14:59 Other: Weight 80.286 kg Height 5 feet 7 inches, weight 177 pounds, BMI 27.7. This is a well-developed well-nourished white female who is alert and oriented times 3 in no acute distress. HEENT: Within normal limits. NECK: Supple without mass or thyromegaly. CHEST AND LUNGS: Clear to auscultation. HEART: Regular rate and rhythm. BREASTS: Are without mass or discharge. AXILLARY EXAM: Negative for adenopathy. BACK: Negative for CVA tenderness. ABDOMEN: Soft, nontender, without palpable masses. PELVIC EXAM: External genitalia reveals mild to moderate atrophy with mild generalized pallor on the inner side of the labia majora with no focal lesions. Cervix and vagina appear normal with mild to moderate atrophy. There is no unusual discharge. There is no evidence of prolapse. The uterus is midposition, nongravid size and nontender. There are no palpable adnexal masses or tenderness. RECTAL EXAM: Rectovaginal exam is negative for mass or tenderness and is negative for occult blood. EXTREMITIES: Nontender. IMPRESSION: 1. 78-year-old menopausal female with normal gynecologic exam. 2. History of previous left salpingo-oophorectomy for a left ovarian mucinous tumor of low malignant potential in 2000. No evidence of recurrence on exam. 3. Mild generalized pallor on the inner side of the labia majora consistent with mild lichen sclerosis of the vulva which is minimally symptomatic. 4. Elevated blood pressure with history of chronic hypertension. 5. History of osteopenia. PLAN: 1. Pap smear was deferred since she had a negative Pap smear cotest on 04/19/20 22. We have continued Pap smear screening about every 3 years because of her history of the low malignant potential gynecologic tumor. 2. Self breast awareness was discussed with the patient. We have also discussed symptoms associated with inflammatory breast cancer. 3. Screening mammogram will be done today. 4. She'll continue to use Kenalog cream as needed for vulvar itching. She uses this infrequently and states she does have this prescription at home and is declining an additional prescription. 5. Tumor markers will include CA-125, CA 19-9 and CEA. The patient will see if her PCP has already drawn these. If so, she will have a copy sent to me. If not, I have given her an order slip for these blood tests which she will then have done. 6. I recommended a pelvic ultrasound yearly and the order slip was given to the patient. She states she is probably going to decline this and have this done every other year. 7.Osteoporosis prevention was discussed. I have stressed the importance of adequate calcium, vitamin D and regular exercise. Recommended amounts of calcium and vitamin D were also discussed. We will plan on repeating the bone density test in 1 year. 8.PHQ-2 questionaire was given and she scores 0. This is a negative screen for depression. 9. I recommended that she check her own blood pressures at home on a regular basis. She will follow up with her PCP for blood pressure elevations. 10. She was advised to return in one year for her annual well woman exam.
== END ==
LOC: WWCWWP 13:31
PROVIDERS: ATTEND Obstetrics & Gynecology
DX: Z12.31 Encounter for screening mammogram for malignant neoplasm of breast (principal); N90.4 Leukoplakia of vulva; R23.1 Pallor; M85.80 Other specified disorders of bone density and structure, unspecified site; I10 Essential (primary) hypertension; F41.9 Anxiety disorder, unspecified; K58.9 Irritable bowel syndrome, unspecified; E07.9 Disorder of thyroid, unspecified; Z78.0 Asymptomatic menopausal state; Z85.43 Personal history of malignant neoplasm of ovary; Z87.891 Personal history of nicotine dependence; Z79.899 Other long term (current) drug therapy; Z79.890 Hormone replacement therapy; Z88.0 Allergy status to penicillin; Z88.2 Allergy status to sulfonamides; Z90.721 Acquired absence of ovaries, unilateral; Z90.79 Acquired absence of other genital organ(s); Z91.011 Allergy to milk products; Z91.018 Allergy to other foods; Z88.6 Allergy status to analgesic agent

== ENCOUNTER → 2023-05-19 | Outpatient (CLI) | payer MEDICARE, OTHER ==
[2023-05-19 16:03] LABS: Carcinoembryonic Antigen 2.5 ng/mL (0.0-4.9)
[2023-05-19 18:44] LABS: Cancer Antigen 19-9 6.7 U/mL (0.0-34.9)
== END | disposition home or self-care (01) ==
LOC: LABWHC1 09:27
PROVIDERS: ATTEND Obstetrics & Gynecology
DX: Z85.43 Personal history of malignant neoplasm of ovary (principal)
CPT/HCPCS: 36415; 82378; 86301; 86304

== ENCOUNTER 2024-03-01 09:11 | Inpatient (IN) | payer MEDICARE, OTHER ==
--- NOTE | 2024-03-01 09:58 | ED ---
Back Pain HPI - General Chief Complaint: Back Pain/Injury Stated Complaint: back pain Time Seen by Provider: 03/01/24 09:28 Source: patient, RN notes reviewed Limitations: no limitations - History of Present Illness Initial Comments: 78 year old female presenting to ED with chief complaint of epigastric pain radiating to upper back medially. States that she went to bed after eating and woke up with bloating, diaphoresis, palpitations, epigastric pain, and dizziness. Denies chest pain, shortness of breath, nausea, diarrhea. Reports history of pancreatic cyst and GERD for which she does not take prescribed omeprozole. - Related Data Home Medications Medication Instructions Recorded Confirmed Cholecalciferol (Vitamin D3) 50 mcg PO DAILY 09/01/17 03/01/24 [Vitamin D3] Levothyroxine Sodium [Synthroid] 75 mcg PO DAILY 09/01/17 03/01/24 Liothyronine Sodium [Cytomel] 5 mcg PO DAILY 09/01/17 03/01/24 LORazepam [Ativan] 0.5 - 1 mg PO TID PRN 09/06/17 03/01/24 Azelastine HCl [Optivar 0.05% 1 drop BOTH EYES BID 12/31/19 03/01/24 Ophth Soln] Vit C/E/Zn/Coppr/Lutein/Zeaxan 1 tab PO BID 12/31/19 03/01/24 [Preservision Areds 2 Softgel] Collagen 1 cap PO DAILY 03/01/24 03/01/24 Ketorolac 0.5% Ophth Soln [Acular 1 drops BOTH EYES QID 03/01/24 03/01/24 0.5%] Multivitamin/Iron/Folic Acid 1 tab PO DAILY 03/01/24 03/01/24 [Centrum Women Tablet] Omeprazole 20 mg PO DAILY 03/01/24 03/01/24 Spironolactone [Aldactone] 50 mg PO DAILY 03/01/24 03/01/24 Allergies Allergy/AdvReac Type Severity Reaction Status Date / Time aspirin Allergy Unknown Verified 03/01/24 11:06 Milk Containing Products Allergy Itching Verified 03/01/24 11:06 (Dairy) [Dairy] Penicillins Allergy Unknown Verified 03/01/24 11:06 soy Allergy Itching Verified 03/01/24 11:06 Sulfa (Sulfonamide Allergy Unknown Verified 03/01/24 11:06 Antibiotics) wheat Allergy Rash/Hives Verified 03/01/24 11:06 Review of Systems ROS Statement: Those systems with pertinent positive or pertinent negative responses have been documented in the HPI. ROS Other: All systems not noted in ROS Statement are negative. 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 Colonoscopy in 2010 and 2015. x2. Bilateral cataract surgery. Past Psychological History: Anxiety Smoking Status: Former smoker Past Alcohol Use History: None Reported Past Drug Use History: None Reported - Past Family History Brother(s) Additional Family Medical History / Comment(s): larynx cancer Father Family Medical History: Myocardial Infarction ([place]) Additional Family Medical History / Comment(s): larynx cancer Mother Family Medical History: Diabetes Mellitus Son(s) Additional Family Medical History / Comment(s): Pancreatic cancer. Sister(s) Family Medical History: Hypertension General Exam Limitations: no limitations General appearance: alert, in no apparent distress Head exam: Present: atraumatic, normocephalic, normal inspection Eye exam: Present: normal appearance, PERRL, EOMI. Absent: scleral icterus, conjunctival injection, periorbital swelling ENT exam: Present: normal exam, mucous membranes moist Neck exam: Present: normal inspection. Absent: tenderness, meningismus, lymphadenopathy Respiratory exam: Present: normal lung sounds bilaterally. Absent: respiratory distress, wheezes, rales, rhonchi, stridor Cardiovascular Exam: Present: regular rate, irregular rhythm, normal heart sounds. Absent: systolic murmur, diastolic murmur, rubs, gallop, clicks GI/Abdominal exam: Present: soft, normal bowel sounds. Absent: distended, tenderness, guarding, rebound, rigid Extremities exam: Present: normal inspection, full ROM, normal capillary refill. Absent: tenderness, pedal edema, joint swelling, calf tenderness Back exam: Present: normal inspection Neurological exam: Present: alert, oriented X3, CN II-XII intact Psychiatric exam: Present: normal affect, normal mood Skin exam: Present: warm, dry, intact, normal color. Absent: rash Course Vital Signs 03/01/24 03/01/24 09:22 14:54 Temperature 97.9 F Pulse Rate 72 51 L Respiratory 20 16 Rate Blood Pressure 193/81 155/77 O2 Sat by Pulse 98 99 Oximetry Medical Decision Making - Medical Decision Making Was pt. sent in by a medical professional or institution (, PA, SALESFORCE SPECIALIST, urgent care, hospital, or [facility]...) When possible be specific @ -No Did you speak to anyone other than the patient for history (EMS, parent, family, police, friend...)? What history was obtained from this source @ -No Did you review nursing and triage notes (agree or disagree)? Why? @ -I reviewed and agree with nursing and triage notes Were old charts reviewed (outside hosp., previous admission, EMS record, old EKG, old radiological studies, urgent care reports/EKG's, [facility] records)? Report findings @ -No old charts were reviewed Differential Diagnosis (chest pain, altered mental status, abdominal pain women, abdominal pain men, vaginal bleeding, weakness, fever, dyspnea, syncope, headache, dizziness, GI bleed, back pain, seizure, CVA, palpatations, mental health, musculoskeletal)? @ -Differential Chest Pain: Stable Angina, Unstable Angina, STEMI, NSTEMI Aortic Dissection, Pneumothorax, Musculoskeletal, Esophageal Spasm GERD, Cholecystitis, Pancreatitis, Zoster, this is not meant to be an all-inclusive list. EKG interpreted by me (3pts min.). @ -As above X-rays interpreted by me (1pt min.). @ -Chest x-ray shows no acute cardiopulmonary process CT interpreted by me (1pt min.). @ -CT angio of the chest no acute PE or aortic dissection CT abdomen pelvis showing pancreatic cysts U/S interpreted by me (1pt. min.). @ -None done What testing was considered but not performed or refused? (CT, X-rays, U/S, labs)? Why? @ -None What meds were considered but not given or refused? Why? @ -None Did you discuss the management of the patient with other professionals (professionals i.e. , PA, SALESFORCE SPECIALIST, lab, RT, psych nurse, clinical social work aide, public health officer, te acher, humane officer, case liner)? Give summary @ -Dr. Nunn for admission Was smoking cessation discussed for >3mins.? @ -No Was critical care preformed (if so, how long)? @ -30 minutes Were there social determinants of health that impacted care today? How? (Homelessness, low income, unemployed, alcoholism, drug addiction, transportation, low edu. Level, literacy, decrease access to med. care, penitentiary, rehab)? @ -No Was there de-escalation of care discussed even if they declined (Discuss DNR or withdrawal of care, Hospice)? DNR status @ -No What co-morbidities impacted this encounter? (DM, HTN, Smoking, COPD, CAD, Cancer, CVA, ARF, Chemo, Hep., AIDS, mental health diagnosis, sleep apnea, morbid obesity)? @ -None Was patient admitted / discharged? Hospital course, mention meds given and route, prescriptions, significant lab abnormalities, going to OR and other pertinent info. @ -Admitted patient found to have elevated troponin, did have upper back pain diaphoretic episode and elevated Trope concerning for NSTEMI. Patient admitted with heparin, repeat laboratory studies and cardiology evaluation Undiagnosed new problem with uncertain prognosis? @ -No Drug Therapy requiring intensive monitoring for toxicity (Heparin, Nitro, Insulin, Cardizem)? @ -Heparin Were any procedures done? @ -No Diagnosis/symptom? @ -NSTEMI, abdominal pain Acute, or Chronic, or Acute on Chronic? @ -Acute Uncomplicated (without systemic symptoms) or Complicated (systemic symptoms)? @ -Complicated Side effects of treatment? @ -No Exacerbation, Progression, or Severe Exacerbation? @ -No Poses a threat to life or bodily function? How? (Chest pain, [place], [place], pneumonia, PE, COPD, DKA, ARF, appy, cholecystitis, CVA, Diverticulitis, Homicidal, Suicidal, threat to staff... and all critical care pts) @ -Yes ACS, cardiac arrest - Lab Data Result diagrams: 03/01/24 09:56 03/01/24 09:56 Lab Results 03/01/24 03/01/24 03/01/24 Range/Units 09:56 09:56 09:56 WBC 5.9 (3.8-10.6) k/uL RBC 4.72 (3.80-5.40) m/uL Hgb 14.3 (11.4-16.0) gm/dL Hct 43.6 (34.0-46.0) % MCV 92.4 (80.0-100.0) fL MCH 30.4 (25.0-35.0) pg MCHC 32.9 (31.0-37.0) g/dL RDW 12.3 (11.5-15.5) % Plt Count 232 (150-450) k/uL MPV 8.3 Neutrophils % 71 % Lymphocytes % 20 % Monocytes % 5 % Eosinophils % 2 % Basophils % 0 % Neutrophils # 4.2 (1.3-7.7) k/uL Lymphocytes # 1.2 (1.0-4.8) k/uL Monocytes # 0.3 (0-1.0) k/uL Eosinophils # 0.1 (0-0.7) k/uL Basophils # 0.0 (0-0.2) k/uL Sodium 138 (137-145) mmol/L Potassium 4.0 (3.5-5.1) mmol/L Chloride 102 (98-107) mmol/L Carbon Dioxide 27 (22-30) mmol/L Anion Gap 9 mmol/L BUN 19 H (7-17) mg/dL Creatinine 0.66 (0.52-1.04) mg/dL Est GFR (CKD-EPI)AfAm >90 (>60 ml/min/1.73 sqM) Est GFR (CKD-EPI)NonAf 84 (>60 ml/min/1.73 sqM) Glucose 158 H (74-99) mg/dL Plasma Lactic Acid Rex (0.7-2.0) mmol/L Calcium 9.5 (8.4-10.2) mg/dL Total Bilirubin 1.0 (0.2-1.3) mg/dL AST 30 (14-36) U/L ALT 18 (4-34) U/L Alkaline Phosphatase 90 (38-126) U/L Troponin I (0.000-0.034) ng/mL Total Protein 7.1 (6.3-8.2) g/dL Albumin 4.4 (3.5-5.0) g/dL Lipase 217 (23-300) U/L Urine Color Colorless Urine Appearance Clear (Clear) Urine pH 6.5 (5.0-8.0) Ur Specific [place] 1.006 (1.001-1.035) Urine Protein Negative (Negative) Urine Glucose (UA) Negative (Negative) Urine Ketones Negative (Negative) Urine Blood Negative (Negative) Urine Nitrite Negative (Negative) Urine Bilirubin Negative (Negative) Urine Urobilinogen <2.0 (<2.0) mg/dL Ur Leukocyte Esterase Negative (Negative) 03/01/24 03/01/24 03/01/24 Range/Units 09:56 09:56 13:28 WBC (3.8-10.6) k/uL RBC (3.80-5.40) m/uL Hgb (11.4-16.0) gm/dL Hct (34.0-46.0) % MCV (80.0-100.0) fL MCH (25.0-35.0) pg MCHC (31.0-37.0) g/dL RDW (11.5-15.5) % Plt Count (150-450) k/uL MPV Neutrophils % % Lymphocytes % % Monocytes % % Eosinophils % % Basophils % % Neutrophils # (1.3-7.7) k/uL Lymphocytes # (1.0-4.8) k/uL Monocytes # (0-1.0) k/uL Eosinophils # (0-0.7) k/uL Basophils # (0-0.2) k/uL Sodium (137-145) mmol/L Potassium (3.5-5.1) mmol/L Chloride (98-107) mmol/L Carbon Dioxide (22-30) mmol/L Anion Gap mmol/L BUN (7-17) mg/dL Creatinine (0.52-1.04) mg/dL Est GFR (CKD-EPI)AfAm (>60 ml/min/1.73 sqM) Est GFR (CKD-EPI)NonAf (>60 ml/min/1.73 sqM) Glucose (74-99) mg/dL Plasma Lactic Acid Rex 1.0 (0.7-2.0) mmol/L Calcium (8.4-10.2) mg/dL Total Bilirubin (0.2-1.3) mg/dL AST (14-36) U/L ALT (4-34) U/L Alkaline Phosphatase (38-126) U/L Troponin I 0.051 H* 0.097 H* (0.000-0.034) ng/mL Total Protein (6.3-8.2) g/dL Albumin (3.5-5.0) g/dL Lipase (23-300) U/L Urine Color Urine Appearance (Clear) Urine pH (5.0-8.0) Ur Specific [place] (1.001-1.035) Urine Protein (Negative) Urine Glucose (UA) (Negative) Urine Ketones (Negative) Urine Blood (Negative) Urine Nitrite (Negative) Urine Bilirubin (Negative) Urine Urobilinogen (<2.0) mg/dL Ur Leukocyte Esterase (Negative) - EKG Data -: EKG Interpreted by Me EKG Comments: EKG performed at 9: 58 sinus rhythm rate of 70 [place] 151 QRS 96 QT/QTc 402/423 Critical Care Time Critical Care Time: Yes Total Critical Care Time: 35 Disposition Clinical Impression: NSTEMI (non-ST elevated myocardial infarction), Abdominal pain Disposition: ADMITTED IP TO THIS HOSP Condition: Fair Time of Disposition: 14:02
[2024-03-01 10:41] LABS: Basophils % (A) 0 %; Eosinophils # (A) 0.1 k/uL (0-0.7); Eosinophils % (A) 2 %; HCT 43.6 % (34.0-46.0); HGB 14.3 gm/dL (11.4-16.0); Lymphocytes # (A) 1.2 k/uL (1.0-4.8); Lymphocytes % (A) 20 %; MCH 30.4 pg (25.0-35.0); MCHC 32.9 g/dL (31.0-37.0); MCV 92.4 fL (80.0-100.0); Mean Platelet Volume 8.3; Monocytes # (A) 0.3 k/uL (0-1.0); Monocytes % (A) 5 %; Neutrophils # (A) 4.2 k/uL (1.3-7.7); Neutrophils % (A) 71 %; Platelet Count 232 k/uL (150-450); RBC 4.72 m/uL (3.80-5.40); RDW 12.3 % (11.5-15.5); WBC 5.9 k/uL (3.8-10.6)
--- NOTE | 2024-03-01 10:44 | XR ---
EXAMINATION TYPE: XR chest 2V DATE OF EXAM: 03/01/2024 COMPARISON: NONE HISTORY: Shortness of breath TECHNIQUE: Frontal and lateral views of the chest are obtained. FINDINGS: Scattered senescent parenchymal changes noted. Hyperinflation compatible with COPD. No evidence for infiltrate. No evidence for atelectasis. Heart size is stable. Mediastinal structures are stable and grossly unremarkable. No evidence for hilar prominence. Degenerative changes dorsal spine. IMPRESSION: 1. No evidence for acute pulmonary disease.
[2024-03-01 10:46] LABS: Appearance,Urine Clear (Clear); Bilirubin,Urine Negative (Negative); Blood,Urine Negative (Negative); Color,Urine Colorless; Glucose,Urine (UA) Negative (Negative); Ketones,Urine Negative (Negative); Leukocyte Esterase,Urine Negative (Negative); Nitrite,Urine Negative (Negative); PH, Urine 6.5 (5.0-8.0); Protein,Urine Negative (Negative); Specific Gravity,Urine 1.006 (1.001-1.035); Urobilinogen,Urine <2.0 mg/dL (<2.0)
[2024-03-01 10:54] LABS: ALT 18 U/L (4-34); AST 30 U/L (14-36); African American GFR (CKD) >90 (>60 ml/min/1.73 sqM); Albumin 4.4 g/dL (3.5-5.0); Alkaline Phosphatase 90 U/L (38-126); Anion Gap 9 mmol/L; Blood Urea Nitrogen 19 mg/dL (7-17); Calcium 9.5 mg/dL (8.4-10.2); Carbon Dioxide 27 mmol/L (22-30); Chloride 102 mmol/L (98-107); Glucose 158 mg/dL (74-99); Lipase 217 U/L (23-300); Non-African American GFR(CKD) 84 (>60 ml/min/1.73 sqM); Sodium 138 mmol/L (137-145); Total Protein 7.1 g/dL (6.3-8.2)
[2024-03-01] MEDS: SODIUM CHLORIDE 0.9% 1,000 ML IV STA (11:08)
--- NOTE | 2024-03-01 12:06 | CT ---
EXAMINATION TYPE: CT abdomen pelvis w con CT DLP: 937.1 mGycm, Automated exposure control for dose reduction was used. DATE OF EXAM: 03/01/2024 11:35 AM COMPARISON: CT abdomen pelvis most recent from CLINICAL INDICATION: Female, 78 years old with history of Abdominal pain; Abdominal pain, gas, bloati ng. TECHNIQUE: Axial CT abdomen pelvis w con;Sagittal and coronal reformats were created on a separate w orkstation. Contrast used:100 ml mL of Isovue 300 with IV Contrast, (none if empty) Oral contrast used: without Oral Contrast (none if empty) FINDINGS: LOWER CHEST: Unremarkable ABDOMEN LIVER: Unremarkable GALLBLADDER AND BILE DUCTS: Unremarkable. PANCREAS: Unremarkable. Abnormal appearance of the pancreatic head with dilated ducts and multiple lo w attenuating areas possibly representing cystic lesions. There may be pancreatic divisum morphology identified. SPLEEN: Unremarkable. ADRENAL GLANDS: Unremarkable. KIDNEYS AND URETERS: No evidence of hydronephrosis or renal calculus. The ureters are unremarkable. PELVIS BLADDER: Unremarkable REPRODUCTIVE: Unremarkable. ABDOMEN & PELVIS STOMACH AND BOWEL: Small hiatal hernia, duodenum is unremarkable No evidence of bowel obstruction. Sc attered colonic diverticula. Normal-appearing appendix. PERITONEUM/RETROPERITONEUM: No evidence of pneumoperitoneum or free fluid. Mild Fat stranding changes in the mid abdomen. VASCULATURE: No evidence of aortic aneurysm. MUSCULOSKELETAL: No acute osseous abnormalities LYMPH NODES: No gross evidence for lymphadenopathy. SOFT TISSUE/ABDOMINAL WALL: Unremarkable IMPRESSION: 1. Abnormal appearance of the pancreatic head. Further evaluation recommended with pancreatic mass p rotocol MRI. Possible pancreatic divisum morphology. Underlying mass not excluded. 2. 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
[2024-03-01] MEDS: SIMETHICONE 80 MG CHEWABLE PO STA (13:21)
[2024-03-01] MEDS: DICYCLOMINE 20 MG TAB PO STA (13:22)
[2024-03-01] MEDS: SODIUM CHLORIDE 0.9% 500 ML 500 ML IV ONE (13:23)
[2024-03-01] MEDS: SODIUM CHLORIDE 0.9% 1,000 ML IV SCH (13:24)
--- NOTE | 2024-03-01 13:59 | CT ---
EXAMINATION TYPE: CT chest without contrast. CT angiogram chest with contrast. CT DLP: 584.8 mGycm, Automated exposure control for dose reduction was used. DATE OF EXAM: 03/01/2024 1:23 PM COMPARISON: CT abdomen pelvis same day. CLINICAL INDICATION: Female, 78 years old with history of pain, elevated trop; Elevated Trop. TECHNIQUE/CONTRAST: CTA scan of the thorax is performed with IV Contrast, patient injected with 100ml mL of Isovue 370, M IP images are created and reviewed these are created on a separate workstation.. FINDINGS: Pulmonary Artery: There is no evidence for a filling defect within the pulmonary vasculature to sugge st acute pulmonary embolism. The pulmonary artery is of normal size. Lungs/Pleura: No evidence of focal consolidation, pleural effusion or pneumothorax. Airway: Large airways are patent. Heart: The heart is mildly enlarged for size. Atherosclerosis of the arterial vasculature. Vasculature: No evidence of aortic aneurysm. Mediastinum: No gross evidence of adenopathy. Musculoskeletal: No acute osseous abnormalities Soft Tissues/lymph nodes: Unremarkable. Lower neck: No significant findings. Upper Abdomen: No significant findings. IMPRESSION: 1. No evidence of pulmonary embolism. 2. Cardiomegaly with mild coronary artery atherosclerosis. No evidence for acute heart failure. 3. See dedicated CT for findings of M and pelvis.
[2024-03-01] MEDS ORDERED: NITROGLYCERIN SL TABS 0.4 MG TAB SUBLINGUAL PRN (14:02)
[2024-03-01] MEDS ORDERED: HEPARIN SODIUM 1,000 UN/ML (10ML VL) IV PRN (14:59)
--- NOTE | 2024-03-01 15:11 | P.HPIM ---
History of Present Illness H&P Date: 03/01/24 Chief Complaint: Epigastric and pain between shoulder blades This is a pleasant 78-year-old patient, follows with Dr. Nasreen Catherine. Chronic stable medical conditions include essential hypertension, hypothyroid, anxiety, IBS, seasonal allergies, GERD for which she does not take her medications. Patient yesterday made a large helping of goulash. She had a large portion of the same. [place] some epigastric discomfort. That she had some more. She then developed pain between the shoulder blades lasting for couple of minutes. Also broke out into perspiration. Also developed epigastric discomfort. It kept bothering her decided to come into the ER. Given her presentation I spoke to the ER, midlevel podiatry provider Kris and a CT chest was ordered. Negative for PE. Spoke to radiologist Dr Clarke who reported no dissection Patient been an ex-smoker. Her niece is at the bedside. Review of systems: GEN.: Tired EYES: None HEENT: None NECK: None RESPIRATORY: None CARDIOVASCULAR: As above e GASTROINTESTINAL: Some fullness in the epigastrium. Discomfort. GERD GENITOURINARY: None MUSCULOSKELETAL: None LYMPHATICS: None HEMATOLOGICAL: None PSYCHIATRY: None NEUROLOGICAL: None. Social history: Lives alone. Smoked less than a pack a day for about 25 years stopped in the mid 80s. Physical examination: VITAL SIGNS: 97.9, 51, 16, 155 x 77, 99% room air GENERAL: BMI 26.5, sitting at the edge of the bed, a bit anxious. EYES: Pupils equal. Conjunctiva felicia l. HEENT: External appearance of nose and ears normal, oral cavity grossly normal. NECK: JVD not raised; masses not palpable. HEART: First and second heart sounds are normal; no edema. LUNGS: Respiratory rate normal; clear to auscultation. ABDOMEN: Soft, nontender, liver spleen not palpable, no masses palpable. PSYCH: Alert and oriented x3; mood and affect felicia l. MUSCULOSKELETAL:No Clubbing/cyanosis;muscles-grossly intact NEUROLOGICAL: Cranial nerves grossly intact; no facial asymmetry, power and sensation grossly intact. LYMPHATICS: No lymph nodes palpable in the axilla and neck INVESTIGATIONS, reviewed in the clinical context: March 01: White count 5.9 hemoglobin 14.3 platelets 232 sodium 138 potassium 4 BUN 19 creatinine 0.66 Troponin I 0.051, 0.097 UA: Negative. Lipase 217 EKG tracing personally reviewed by me-normal sinus rhythm. Mild ST depression in inferolateral leads. Chest x-ray film personally reviewed by me-hyperinflation CT abdomen pelvis: Abnormal appearance of the pancreatic head. Some nonspecific fat stranding within the mesentery. Chest CTA with contrast. Negative PE. Cardiomegaly. Discussed with radiologist Dr. Clarke-no dissection Assessment plan: -Acute non-Q wave OK. Cardiac risk factors include previous smoker. Postmenopausal. Essential hypertension. Troponins positive. EKG changes inferior leads Aspirin. Lopressor. Telemetry. IV heparin. Cardiology consultation 2D echo -IV heparin monitoring. Follow PTT -COPD in a previous smoker Albuterol as needed -GERD patient not taking his prescribed medications at home Protonix for 20 mg twice daily -Hypothyroid Synthroid and Cytomel -Essential hypertension Lopressor Care was discussed with patient. Questions answered. 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 Colonoscopy in 2010 and 2016. x2. Bilateral cataract surgery. Past Psychological History: Anxiety Smoking Status: Former smoker Past Alcohol Use History: None Reported Past Drug Use History: None Reported - Past Family History Brother(s) Additional Family Medical History / Comment(s): larynx cancer Father Family Medical History: Myocardial Infarction ([place]) Additional Family Medical History / Comment(s): larynx cancer Mother Family Medical History: Diabetes Mellitus Son(s) Additional Family Medical History / Comment(s): Pancreatic cancer. Sister(s) Family Medical History: Hypertension Medications and Allergies Home Medications Medication Instructions Recorded Confirmed Type Cholecalciferol (Vitamin D3) 50 mcg PO DAILY 09/01/17 03/01/24 History [Vitamin D3] Levothyroxine Sodium [Synthroid] 75 mcg PO DAILY 09/01/17 03/01/24 History Liothyronine Sodium [Cytomel] 5 mcg PO DAILY 09/01/17 03/01/24 History LORazepam [Ativan] 0.5 - 1 mg PO TID PRN 09/06/17 03/01/24 History Azelastine HCl [Optivar 0.05% 1 drop BOTH EYES BID 12/31/19 03/01/24 History Ophth Soln] Vit C/E/Zn/Coppr/Lutein/Zeaxan 1 tab PO BID 12/31/19 03/01/24 History [Preservision Areds 2 Softgel] Collagen 1 cap PO DAILY 03/01/24 03/01/24 History Ketorolac 0.5% Ophth Soln [Acular 1 drops BOTH EYES QID 03/01/24 03/01/24 History 0.5%] Multivitamin/Iron/Folic Acid 1 tab PO DAILY 03/01/24 03/01/24 History [Centrum Women Tablet] Omeprazole 20 mg PO DAILY 03/01/24 03/01/24 History Spironolactone [Aldactone] 50 mg PO DAILY 03/01/24 03/01/24 History Allergies Allergy/AdvReac Type Severity Reaction Status Date / Time aspirin Allergy Unknown Verified 03/01/24 11:06 Milk Containing Products Allergy Itching Verified 03/01/24 11:06 (Dairy) [Dairy] Penicillins Allergy Unknown Verified 03/01/24 11:06 soy Allergy Itching Verified 03/01/24 11:06 Sulfa (Sulfonamide Allergy Unknown Verified 03/01/24 11:06 Antibiotics) wheat Allergy Rash/Hives Verified 03/01/24 11:06 Physical Exam Vitals: Vital Signs Temp Pulse Resp BP Pulse Ox 03/01/24 14:54 51 L 16 155/77 99 03/01/24 09:22 97.9 F 72 20 193/81 98 Intake and Output 02/29/24 03/01/24 03/01/24 22:59 06:59 14:59 Other: Weight 76.657 kg Results CBC & Chem 7: 03/01/24 09:56 03/01/24 09:56 Labs: Abnormal Lab Results - Last 24 Hours (Table) 03/01/24 03/01/24 03/01/24 Range/Units 09:56 09:56 13:28 BUN 19 H (7-17) mg/dL Glucose 158 H (74-99) mg/dL Troponin I 0.051 H* 0.097 H* (0.000-0.034) ng/mL
[2024-03-01] MEDS: PANTOPRAZOLE 40 MG TABLET PO SCH (15:51)
[2024-03-01] MEDS: HEPARIN SODIUM 1,000 UN/ML (10ML VL) IV ONE (15:52)
[2024-03-01] MEDS: HEPARIN SOD,PORK IN 0.45% NACL 25,000 UNIT in 0.45% NACL 1 250ML.BAG IV SCH (15:53)
[2024-03-01] MEDS: KETOROLAC 0.5% OPHTH DROPS 5 ML BTL BOTH EYES SCH (17:31)
[2024-03-01] MEDS: LACTULOSE 20 GM/30 ML CUP PO ONE (19:06)
--- NOTE | 2024-03-01 19:10 | XR ---
EXAMINATION TYPE: XR abdomen 2V DATE OF EXAM: 03/01/2024 6:52 PM CLINICAL INDICATION:Female, 78 years old with history of Epigastric discomfort, with bloating COMPARISON: CT abdomen/pelvis from the same day. TECHNIQUE: Frontal upright and supine radiographs of the abdomen. FINDINGS: Nonspecific nonobstructive bowel gas pattern is seen. No pneumoperitoneum. No acute osseous abnormalities. Contrast is seen in the urinary bladder from recent CT exam. Visualized portions of t he lower thorax is grossly normal. IMPRESSION: No acute radiographic abnormality. Please see CT abdomen/pelvis study from the same day for further i ntra-abdominal/pelvic details.
[2024-03-01] MEDS: LORazepam 0.5 MG TAB PO PRN (19:18)
[2024-03-01] MEDS: VIT A,C & E-LUTEIN-MINERALS 1 EACH TAB PO SCH (22:13)
[2024-03-01] MEDS: ATORVASTATIN 40 MG TAB PO SCH (22:31)
[2024-03-01] MEDS: KETOTIFEN 0.025% OPHTH DROPS 5 ML BTL BOTH EYES SCH (22:31)
[2024-03-02] MEDS: METOPROLOL TARTRATE 25 MG TAB PO SCH (00:09)
[2024-03-02] MEDS: LIOTHYRONINE SODIUM 5 MCG TAB PO SCH (06:48)
[2024-03-02] MEDS: LEVOTHYROXINE 75 MCG TAB PO SCH (06:48)
[2024-03-02 07:37] LABS: Basophils % (A) 0 %; Eosinophils # (A) 0.2 k/uL (0-0.7); Eosinophils % (A) 3 %; HCT 42.7 % (34.0-46.0); HGB 13.8 gm/dL (11.4-16.0); Lymphocytes # (A) 1.5 k/uL (1.0-4.8); Lymphocytes % (A) 22 %; MCH 30.3 pg (25.0-35.0); MCHC 32.4 g/dL (31.0-37.0); MCV 93.5 fL (80.0-100.0); Mean Platelet Volume 8.7; Monocytes # (A) 0.4 k/uL (0-1.0); Monocytes % (A) 5 %; Neutrophils # (A) 4.6 k/uL (1.3-7.7); Neutrophils % (A) 68 %; Platelet Count 229 k/uL (150-450); RBC 4.57 m/uL (3.80-5.40); RDW 12.5 % (11.5-15.5); WBC 6.8 k/uL (3.8-10.6)
[2024-03-02 08:05] LABS: Partial Thromboplastin Time 43.6 sec (22.0-30.0); Prothrombin Time 11.1 sec (10.0-12.5)
[2024-03-02 08:24] VITALS: RESP 16
--- NOTE | 2024-03-02 08:39 | P.CRDCN ---
History of Present Illness Consult date: 03/02/24 History of present illness: The patient is a pleasant 78-year-old female patient with a past medical history significant for dyslipidemia was not on any lipid-lowering agents as well as hypertension presented to the hospital complaining of epigastric discomfort. She was in her usual state of health till yesterday when she started experiencing discomfort in the epigastric area and lower chest with radiation to the back. No associated symptoms of shortness of breath or dizziness or lightheadedness or any feeling of heart racing or fluttering or presyncope or syncope or edema in the lower extremities which he underwent further workup including chest x-ray came in to be unremarkable and CT scan of the chest showed no evidence of pulmonary embolism and also she underwent an EKG showed sinus mechanism with nonspecific ST and T wave abnormalities. The blood work definitely indicated acute coronary syndrome with elevation in the troponin. The physical examination is remarkable for stable vital signs with regular rate and rhythm and soft systolic murmur and clear breathing sounds bilaterally and no edema was noted in the lower extremities Assessment Acute non-ST elevation myocardial infarction Hypertension Dyslipidemia Plan Continue heparin Proceed with coronary angiogram Aspirin and statin and anti-ischemic medications Obtain an echocardiogram with Doppler Follow-up with the patient Past Medical History Past Medical History: Cancer, Hypertension, Thyroid Disorder Additional Past Medical History / Comment(s): History of anxiety, irritable bowel syndrome and seasonal allergies. 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 Colonoscopy in 2010 and 2016. x2. Bilateral cataract surgery. Past Anesthesia/Blood Transfusion Reactions: No Reported Reaction Past Psychological History: Anxiety Smoking Status: Former smoker Past Alcohol Use History: None Reported Additional Past Alcohol Use History / Comment(s): Quit smoking in the 1980s. Past Drug Use History: None Reported - Past Family History Brother(s) Additional Family Medical History / Comment(s): larynx cancer Father Family Medical History: Myocardial Infarction (AL) Additional Family Medical History / Comment(s): . Mother Family Medical History: Coronary Artery Disease (CAD), Diabetes Mellitus Son(s) Additional Family Medical History / Comment(s): Pancreatic cancer. Sister(s) Family Medical History: Congestive Heart Failure (CHF), Hypertension Medications and Allergies Home Medications Medication Instructions Recorded Confirmed Type Cholecalciferol (Vitamin D3) 50 mcg PO DAILY 09/01/17 03/01/24 History [Vitamin D3] Levothyroxine Sodium [Synthroid] 75 mcg PO DAILY 09/01/17 03/01/24 History Liothyronine Sodium [Cytomel] 5 mcg PO DAILY 09/01/17 03/01/24 History LORazepam [Ativan] 0.5 - 1 mg PO TID PRN 09/06/17 03/01/24 History Azelastine HCl [Optivar 0.05% 1 drop BOTH EYES BID 12/31/19 03/01/24 History Ophth Soln] Vit C/E/Zn/Coppr/Lutein/Zeaxan 1 tab PO BID 12/31/19 03/01/24 History [Preservision Areds 2 Softgel] Collagen 1 cap PO DAILY 03/01/24 03/01/24 History Ketorolac 0.5% Ophth Soln [Acular 1 drops BOTH EYES QID 03/01/24 03/01/24 History 0.5%] Multivitamin/Iron/Folic Acid 1 tab PO DAILY 03/01/24 03/01/24 History [Centrum Women Tablet] Omeprazole 20 mg PO DAILY 03/01/24 03/01/24 History Spironolactone [Aldactone] 50 mg PO DAILY 03/01/24 03/01/24 History Allergies Allergy/AdvReac Type Severity Reaction Status Date / Time aspirin Allergy Unknown Verified 03/01/24 11:06 Milk Containing Products Allergy Itching Verified 03/01/24 11:06 (Dairy) [Dairy] Penicillins Allergy Unknown Verified 03/01/24 11:06 soy Allergy Itching Verified 03/01/24 11:06 Ffnaweu-RYK-SpI Reductase Allergy Swelling Verified 03/01/24 22:32 Inhibitor Sulfa (Sulfonamide Allergy Unknown Verified 03/01/24 11:06 Antibiotics) sulfamethoxazole Allergy Unknown Verified 03/01/24 22:32 [From Bactrim] trimethoprim [From Bactrim] Allergy Unknown Verified 03/01/24 22:32 wheat Allergy Rash/Hives Verified 03/01/24 11:06 Physical Exam Vitals: Vital Signs Temp Pulse Pulse Resp BP BP Pulse Ox 03/02/24 08:00 98 F 67 16 138/78 96 03/02/24 04:06 98.3 F 63 18 122/58 97 03/01/24 23:55 97.8 F 72 16 126/61 97 03/01/24 21:36 98.0 F 72 16 171/79 98 03/01/24 20:42 59 L 14 121/70 98 03/01/24 17:31 63 18 155/83 98 03/01/24 14:54 51 L 16 155/77 99 03/01/24 09:22 97.9 F 72 20 193/81 98 Intake and Output 03/01/24 03/02/24 03/02/24 22:59 06:59 14:59 Other: Voiding Method Toilet Toilet # Voids 1 Weight 76.657 kg 77 kg Results 03/02/24 06:32 03/01/24 09:56 Cardiac Enzymes 03/01/24 03/01/24 03/01/24 Range/Units 09:56 09:56 13:28 AST 30 (14-36) U/L Troponin I 0.051 H* 0.097 H* (0.000-0.034) ng/mL 03/01/24 Range/Units 16:46 AST (14-36) U/L Troponin I 0.299 H* (0.000-0.034) ng/mL Coagulation 03/01/24 03/02/24 Range/Units 21:21 06:32 PT 11.1 (10.0-12.5) sec APTT 48.7 H 43.6 H (22.0-30.0) sec CBC 03/01/24 03/02/24 Range/Units 09:56 06:32 WBC 5.9 6.8 (3.8-10.6) k/uL RBC 4.72 4.57 (3.80-5.40) m/uL Hgb 14.3 13.8 (11.4-16.0) gm/dL Hct 43.6 42.7 (34.0-46.0) % Plt Count 232 229 (150-450) k/uL Comprehensive Metabolic Panel 03/01/24 Range/Units 09:56 Sodium 138 (137-145) mmol/L Potassium 4.0 (3.5-5.1) mmol/L Chloride 102 (98-107) mmol/L Carbon Dioxide 27 (22-30) mmol/L BUN 19 H (7-17) mg/dL Creatinine 0.66 (0.52-1.04) mg/dL Glucose 158 H (74-99) mg/dL Calcium 9.5 (8.4-10.2) mg/dL AST 30 (14-36) U/L ALT 18 (4-34) U/L Alkaline Phosphatase 90 (38-126) U/L Total Protein 7.1 (6.3-8.2) g/dL Albumin 4.4 (3.5-5.0) g/dL Current Medications Generic Name Dose Route Start Last Admin Trade Name Freq PRN Reason Stop Dose Admin Atorvastatin Calcium 40 mg 03/01/24 21:00 03/01/24 22:31 Atorvastatin 40 Mg Tab PO Not Given HS YUMIKO Cholecalciferol 50 mcg 03/02/24 09:00 Cholecalciferol 25 Mcg (1000 Iu) Tablet PO DAILY YUMIKO Heparin Sodium (Porcine) 0 unit 03/01/24 14:59 Heparin Sodium 1,000 Un/Ml (10ml Vl) IV PER PROTOCOL PRN Low PTT Protocol Sodium Chloride 1,000 mls @ 100 mls/hr 03/01/24 12:45 03/01/24 22:17 Saline 0.9% IV 100 mls/hr .Q10H YUMIKO Administration Heparin Sodium/Sodium Chloride 250 mls @ 9.199 mls/hr 03/01/24 15:00 03/01/24 15:53 25,000 unit/ Sodium Chloride IV 12 units/kg/hr .Q24H YUMIKO 9.199 mls/hr Administration Protocol 12 UNITS/KG/HR Ketorolac Tromethamine 1 drops 03/01/24 18:00 03/01/24 22:31 Ketorolac 0.5% Ophth Drops 5 Ml Btl BOTH EYES Not Given QID YUMIKO Ketotifen Fumarate 1 drops 03/01/24 21:00 03/01/24 22:31 Ketotifen 0.025% Ophth Drops 5 Ml Btl BOTH EYES Not Given BID YUMIKO Levothyroxine Sodium 75 mcg 03/02/24 06:30 03/02/24 06:48 Levothyroxine 75 Mcg Tab PO 75 mcg 0630 YUMIKO Administration Liothyronine Sodium 5 mcg 03/02/24 06:30 03/02/24 06:48 Liothyronine Sodium 5 Mcg Tab PO 5 mcg DAILY [facility] Administration Lorazepam 0.5 mg 03/01/24 18:01 03/01/24 19:18 Lorazepam 0.5 Mg Tab PO 0.5 mg Q8H PRN Administration Anxiety Metoprolol Tartrate 25 mg 03/01/24 21:00 03/02/24 00:09 Metoprolol Tartrate 25 Mg Tab PO Not Given BID [facility] Multivitamins 1 each 03/02/24 09:00 Multivitamins, Thera 1 Each Tab PO DAILY [facility] Multivitamins/Minerals 1 each 03/01/24 21:00 03/01/24 22:13 Vit A,C & N-Voyilm-Svhjidrm 1 Each Tab PO 1 each BID YUMIKO Administration Nitroglycerin 0.4 mg 03/01/24 14:02 Nitroglycerin Sl Tabs 0.4 Mg Tab SUBLINGUAL Q5M PRN Chest Pain Pantoprazole Sodium 40 mg 03/01/24 15:08 03/02/24 06:49 Pantoprazole 40 Mg Tablet PO 40 mg 0730 [facility] Administration Intake and Output 03/01/24 03/02/24 03/02/24 22:59 06:59 14:59 Other: Voiding Method Toilet Toilet # Voids 1 Weight 76.657 kg 77 kg 03/02/24 06:32 03/01/24 09:56
[2024-03-02] MEDS ORDERED: ALPRAZolam 0.25 MG TAB PO PRN (08:42)
[2024-03-02] MEDS: ASPIRIN 325 MG TAB PO STA (10:41)
[2024-03-02] MEDS: MULTIVITAMINS, THERA 1 EACH TAB PO SCH (10:41)
[2024-03-02] MEDS: CHOLECALCIFEROL 25 MCG (1000 IU) TABLET PO SCH (10:41)
[2024-03-02] MEDS: ATORVASTATIN 80 MG TAB PO STA (10:41)
[2024-03-02 13:07] LABS: Chol/HDL Ratio 4.17 Ratio; LDL Cholesterol,Calculated 140.8 mg/dL (0.0-131.0)
[2024-03-02] MEDS: SODIUM CHLORIDE 0.9% 1,000 ML in EMPTY BAG 1 BAG IV ONE (13:47)
[2024-03-02] MEDS: IV FLUID CONTINUATION 1,000 ML IV ONE (14:40)
[2024-03-02] MEDS: MIDAZOLAM 2 MG/2 ML VIAL IVP ONE (14:44)
[2024-03-02] MEDS: LIDOCAINE 1% INJ 10MG/ML (20 ML MDV) SQ ONE (14:44)
[2024-03-02] MEDS: VERAPAMIL SYRINGE (5 MG/10 ML) INTRAARTER ONE (14:47)
[2024-03-02] MEDS: HEPARIN SODIUM 1,000 UN/ML (10ML VL) IVP ONE (14:58)
[2024-03-02] MEDS: TICAGRELOR 90 MG TAB PO ONE (15:01)
[2024-03-02] MEDS: HEPARIN SODIUM,PORCINE 10,000 UNIT in SODIUM CHLORIDE 0.9% 1,000 ML IRRIGATION PRN (15:03)
[2024-03-02] MEDS: HEPARIN SODIUM,PORCINE (1 ML) 2,500 UNIT in SODIUM CHLORIDE 0.9% 250 ML IRRIGATION PRN (15:03)
[2024-03-02] MEDS: NITROGLYCERIN 1000MCG/10ML SYRINGE INTRACORON ONE (15:05)
[2024-03-02] MEDS: IOPAMIDOL-370 200ML BTL INJ ONE (15:13)
[2024-03-02] MEDS ORDERED: NITROGLYCERIN SL TABS 0.4 MG TAB SUBLINGUAL PRN (15:21)
[2024-03-02] MEDS ORDERED: MAG HYDROX/AL HYDROX/SIMETH 30 ML CUP PO PRN (15:21)
[2024-03-02] MEDS ORDERED: ZOLPIDEM 5 MG TAB PO PRN (15:21)
[2024-03-02] MEDS ORDERED: ATROPINE SULFATE 0.1 MG/ML 10ML SYRINGE IV PRN (15:21)
[2024-03-02] MEDS ORDERED: RX INFO: IV CONTRAST WAS GIVEN 1 EACH MISC MISCELLANE PRN (15:21)
--- NOTE | 2024-03-02 15:25 | P.PCN ---
Date of Procedure: 03/02/24 Operative Findings: CARDIAC CATHETERIZATION AND PERCUTANEOUS CORONARY INTERVENTION PERFORMING PHYSICIAN: Johnie Upton MD, VI PROCEDURE PERFORMED: 1. Selective right and left coronary angiogram 2. Left heart catheterization 3. Successful stenting of mid RCA using 3.25 x 18 mm Xience PORTIA with an exce llent angiographic results with adjunctive use of IVUS 4. Ultrasound-guided access of the right radial artery INDICATION: Non-ST elevation MN COMPLICATION: None APPROACH: Right radial art LEVEL OF SEDATION: Moderate with the sedation time off 33 minutes PROCEDURE DESCRIPTION: After obtaining informed consent the patient was brought to the cardiac Fingernail Sculptor. The right radial artery was cannulated using micropuncture technique under ultrasound guidance the micropuncture wire passed easily then I placed a 6 Wolof 11 cm sheath at the right radial artery and give the patient 2 mg of verapamil intra-arterial and subsequently heparin IV was given with adjunctive use of ACT. Subsequently I did selective right and left coronary angiogram with JR4 and JL 3.5 catheters and left heart catheterization using the JL 3.5 catheter which crossed the aortic valve. I decided after that to intervene on the RCA. I did engage the RCA using JR4 guide catheter with sideholes. Subsequently I wired using a run-through wire. Intravascular ultrasound was performed and showed a diameter around 3 point millimeter to 3.25 mm. I predilated using 3 mm balloon before I deployed 3.25 x 18 mm stent where the stent was positioned under fluoroscopic guidance and deployed under his nominal pressure. Intravascular ultrasound was performed and showed that the stent was well opposed and well-expanded. I did final angiogram which showed an excellent angiographic results and the procedure was completed with no complication SELECTIVE CORONARY ANGIOGRAM: The right coronary artery: Large-caliber and a dominant vessel with critical disease involving the midportion Left main: Is angiographically normal. Bifurcates into an LCx and LAD The left circumflex: Large caliber vessel nondominant vessel with mild disease only. Gives rise into a large OM which appears to have mild disease only The left anterior descending artery: The proximal LAD appears to have mild disease only. The mid LAD has mild to moderate disease with no high-grade stenosis was identified. HEMODYNAMICS: The LVEDP was about 28 mmHg with no significant gradient across aortic valve CONCLUSION: Critical disease involving the RCA. I did perform successful stenting of the mid RCA Mild to moderate disease involving the left coronary system POSTPROCEDURE MANAGEMENT: 1. Dual antiplatelet therapy using aspirin and Brilinta for 12 month 2. Aggressive cholesterol control 3. Follow-up with the patient
--- NOTE | 2024-03-02 16:22 | CA ---
Transthoracic Echo Report Name: Juanita Fuchs Age: 78 Gender: F : 1945 Exam Date: 03/02/2024 08:52 Exam Location: [facility] Ht (in): 67 Wt (lb): 169 Ordering Physician: Won Bill Attending/Referring Phys: [id number], Fly Marketing Sales Consultant Bharti Ku, LILIANA Procedure CPT: Indications: Chest Pain Cardiac Hx: Technical Quality: Fair Contrast 1: Total Dose (mL): Contrast 2: Total Dose (mL): MEASUREMENTS (Male / Female) Normal Values 2D ECHO LV Diastolic Diameter PLAX 4.0 cm 4.2 - 5.9 / 3.9 - 5.3 cm LV Systolic Diameter PLAX 3.4 cm IVS Diastolic Thickness 1.2 cm 0.6 - 1.0 / 0.6 - 0.9 cm LVPW Diastolic Thickness 1.2 cm 0.6 - 1.0 / 0.6 - 0.9 cm LV Relative Wall Thickness 0.6 RV Internal Dim ED PLAX 1.8 cm LA Systolic Diameter LX 3.4 cm 3.0 - 4.0 / 2.7 - 3.8 cm LV Diastolic Volume MOD BP 45.2 cm??? 67 - 155 / 56 - 104 cm??? LV Systolic Volume MOD BP 21.4 cm??? - / 19 - 49 cm??? LV Ejection Fraction MOD BP 52.7 % >= 55 % LV Cardiac Index MOD BP 1194.3 cm???/min???m??? LV Diastolic Volume MOD 4C 55.5 cm??? LV Systolic Volume MOD 4C 21.9 cm??? LV Ejection Fraction MOD 4C 60.6 % LV Cardiac Index MOD 4C 1684.3 cm???/min???m??? LV Diastolic Length 4C 6.4 cm LV Systolic Length 4C 5.6 cm LV Diastolic Volume MOD 2C 35.0 cm??? LV Systolic Volume MOD 2C 19.3 cm??? LV Ejection Fraction MOD 2C 44.9 % LV Cardiac Index MOD 2C 788.2 cm???/min???m??? LV Diastolic Length 2C 6.1 cm LV Systolic Length 2C 5.1 cm LA Volume 49.4 cm??? 18 - 58 / 22 - 52 cm??? LA Volume Index 25.8 cm???/m??? 16 - 28 cm???/m??? M-MODE Aortic Root Diameter MM 2.3 cm LA Systolic Diameter MM 4.3 cm LA Ao Ratio MM 1.9 DOPPLER AV Peak Velocity 153.2 cm/s AV Peak Gradient 9.4 mmHg AV Mean Velocity 104.6 cm/s AV Mean Gradient 4.9 mmHg AV Velocity Time Integral 30.3 cm LVOT Peak Velocity 147.4 cm/s LVOT Peak Gradient 8.7 mmHg LVOT Velocity Time Integral 30.4 cm MV Area PHT 3.8 cm??? Mitral E Point Velocity 93.7 cm/s Mitral A Point Velocity 110.2 cm/s Mitral E to A Ratio 0.8 MV Deceleration Time 201.9 ms TR Peak Velocity 267.9 cm/s TR Peak Gradient 28.7 mmHg Right Ventricular Systolic Press 33.1 mmHg FINDINGS Left Ventricle Left ventricular ejection fraction is estimated at 55-60 %. Mildly increased septal wall thickness. Mildly increased posterior wall thickness. Left ventricular cavity size normal. No obvious regional wall motion abnormalities. Right Ventricle Normal right ventricular size and function. Right ventricular systolic pressure within normal limits. Right Atrium Normal right atrial size. Left Atrium Mild left atrial dilatation. Mitral Valve Structurally normal mitral valve. Mild mitral regurgitation. No mitral stenosis. Aortic Valve Trileaflet aortic valve. No aortic stenosis. No aortic regurgitation. Tricuspid Valve Structurally normal tricuspid valve. Mild tricuspid regurgitation. No tricuspid stenosis. Pulmonic Valve Structurally normal pulmonic valve. Trace pulmonic regurgitation. No pulmonic stenosis. Pericardium No pericardial or pleural effusion. Aorta Normal size aortic root and proximal ascending aorta. CONCLUSIONS Normal LV systolic function Previewed by: Dr. Johnie Upton MD (Electronically Signed) Final Date: 02 March 2024 16:21
[2024-03-02] MEDS: SODIUM CHLORIDE 0.9% 1,000 ML in EMPTY BAG 1 BAG IV SCH (16:40)
--- NOTE | 2024-03-02 17:57 | P.PN ---
Progress Note - Text Progress Note Date: 03/02/24 Chief Complaint: Epigastric and pain between shoulder blades This is a pleasant 78-year-old patient, follows with Dr. Nasreen Catherine. Chronic stable medical conditions include essential hypertension, hypothyroid, anxiety, IBS, seasonal allergies, GERD for which she does not take her medications. Patient yesterday made a large helping of goulash. She had a large portion of the same. [place] some epigastric discomfort. That she had some more. She then developed pain between the shoulder blades lasting for couple of minutes. Also broke out into perspiration. Also developed epigastric discomfort. It kept bothering her decided to come into the ER. Given her presentation I spoke to the ER, midlevel podiatry provider Kris and a CT chest was ordered. Negative for PE. Spoke to radiologist Dr Clarke who reported no dissection Patient been an ex-smoker. Her niece is at the bedside. March 02: Saw the patient this morning. Up in the chair. No chest pain. Later this afternoon underwent a cardiac catheterization. Found to have a high- grade stenosis in the RCA that was successfully stented by Dr. Upton. Active Medications Al Hydroxide/Mg Hydroxide (Mag Hydrox/Al Hydrox/Simeth 30 Ml Cup) 30 ml PO Q4HR PRN PRN Reason: Heartburn Alprazolam (Alprazolam 0.25 Mg Tab) 0.25 mg PO Q6HR PRN PRN Reason: Mild Anxiety Alprazolam (Alprazolam 0.5 Mg Tab) 0.5 mg PO Q6HR PRN PRN Reason: Moderate Anxiety Aspirin (Aspirin 81 Mg) 81 mg PO DAILY [facility] Atorvastatin Calcium (Atorvastatin 40 Mg Tab) 40 mg PO HS [facility] Last Admin: 03/01/24 22:31 Dose: Not Given Atropine Sulfate (Atropine Sulfate 0.1 Mg/Ml 10ml Syringe) 0.5 mg IV ONCE PRN PRN Reason: Symptomatic Bradycardia Cholecalciferol (Cholecalciferol 25 Mcg (1000 Iu) Tablet) 50 mcg PO DAILY [facility] Last Admin: 03/02/24 10:41 Dose: 50 mcg Sodium Chloride (Saline 0.9%) 1,000 mls @ 100 mls/hr IV .Q10H [facility] Last Admin: 03/02/24 10:42 Dose: Not Given Sodium Chloride 1,000 ml/ IV (Solution) 1,000 mls @ 75 mls/hr IV .[id number] [facility] Stop: 03/02/24 20:29 Last Admin: 03/02/24 16:40 Dose: Not Given Ketorolac Tromethamine (Ketorolac 0.5% Ophth Drops 5 Ml Btl) 1 drops BOTH EYES QID [facility] Last Admin: 03/02/24 17:23 Dose: Not Given Ketotifen Fumarate (Ketotifen 0.025% Ophth Drops 5 Ml Btl) 1 drops BOTH EYES BID [facility] Last Admin: 03/02/24 10:42 Dose: Not Given Levothyroxine Sodium (Levothyroxine 75 Mcg Tab) 75 mcg PO 0630 [facility] Last Admin: 03/02/24 06:48 Dose: 75 mcg Liothyronine Sodium (Liothyronine Sodium 5 Mcg Tab) 5 mcg PO DAILY [facility] Last Admin: 03/02/24 10:41 Dose: Not Given Lorazepam (Lorazepam 0.5 Mg Tab) 0.5 mg PO Q8H PRN PRN Reason: Anxiety Last Admin: 03/01/24 19:18 Dose: 0.5 mg Metoprolol Tartrate (Metoprolol Tartrate 25 Mg Tab) 25 mg PO BID [facility] Last Admin: 03/02/24 10:41 Dose: Not Given Miscellaneous Information (Rx Info: Iv Contrast Was Given 1 Each Misc) 1 each MISCELLANE DAILY PRN PRN Reason: Per Protocol Stop: 03/04/24 15:21 Multivitamins (Multivitamins, Thera 1 Each Tab) 1 each PO DAILY [facility] Last Admin: 03/02/24 10:41 Dose: 1 each Multivitamins/Minerals (Vit A,C & D-Ugvmfb-Rqewzamx 1 Each Tab) 1 each PO BID [facility] Last Admin: 03/02/24 10:41 Dose: 1 each Nitroglycerin (Nitroglycerin Sl Tabs 0.4 Mg Tab) 0.4 mg SUBLINGUAL Q5M PRN PRN Reason: Chest Pain Nitroglycerin (Nitroglycerin Sl Tabs 0.4 Mg Tab) 0.4 mg SUBLINGUAL Q5M PRN PRN Reason: Chest Pain Pantoprazole Sodium (Pantoprazole 40 Mg Tablet) 40 mg PO 0730 [facility] Last Admin: 03/02/24 06:49 Dose: 40 mg Ticagrelor (Ticagrelor 90 Mg Tab) 90 mg PO BID [facility]; Protocol Zolpidem Tartrate (Zolpidem 5 Mg Tab) 5 mg PO HS PRN PRN Reason: Insomnia Social history: Lives alone. Smoked less than a pack a day for about 25 years stopped in the mid 80s. Physical examination: VITAL SIGNS: 98, 77, 16, 144 x 83, 96% room air GENERAL: Sitting up in chair, comfortable EYES: Pupils equal. Conjunctiva felicia l. HEENT: External appearance of nose and ears normal, oral cavity grossly normal. NECK: JVD not raised; masses not palpable. HEART: First and second heart sounds are normal; no edema. LUNGS: Respiratory rate normal; clear to auscultation. ABDOMEN: Soft, nontender, liver spleen not palpable, no masses palpable. PSYCH: Alert and oriented x3; mood and affect felicia l. MUSCULOSKELETAL:No Clubbing/cyanosis;muscles-grossly intact INVESTIGATIONS, reviewed in the clinical context: 2D echo: EF 55 to 60%. March 02: White count 6.8 hemoglobin 13.8 platelets 229 LDL 140 March 01: White count 5.9 hemoglobin 14.3 platelets 232 sodium 138 potassium 4 BUN 19 creatinine 0.66 Troponin I 0.051, 0.097 UA: Negative. Lipase 217 EKG tracing personally reviewed by me-normal sinus rhythm. Mild ST depression in inferolateral leads. Chest x-ray film personally reviewed by me-hyperinflation CT abdomen pelvis: Abnormal appearance of the pancreatic head. Some nonspecific fat stranding within the mesentery. Chest CTA with contrast. Negative PE. Cardiomegaly. Discussed with radiologist Dr. Clarke-no dissection Assessment plan: -Acute non-Q wave [place]. Cardiac risk factors include previous smoker. Postmenopausal. Essential hypertension. Troponins positive. EKG changes inferior leads 2D echo: Preserved LV function Aspirin. Lopressor. Telemetry. IV heparin. Cardiology following -IV heparin monitoring. Follow PTT -CAD with significant disease in the RCA. Successful stenting by Dr. Upton -COPD in a previous smoker Albuterol as needed -Hyperlipidemia, LDL 140 Lipitor 80 mg nightly started -GERD patient not taking his prescribed medications at home Protonix for 20 mg twice daily -Hypothyroid Synthroid and Cytomel -Essential hypertension Lopressor Care was discussed with patient. Follow with cardiology Past Medical History Past Medical History: Cancer, Hypertension, Thyroid Disorder Additional Past Medical History / Comment(s): History of anxiety, irritable bowel syndrome and seasonal allergies. 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 Colonoscopy in 2010 and 2015. x2. Bilateral cataract surgery. Past Psychological History: Anxiety Smoking Status: Former smoker Past Alcohol Use History: None Reported Past Drug Use History: None Reported
[2024-03-02] MEDS: TICAGRELOR 90 MG TAB PO SCH (21:12)
[2024-03-03] MEDS: ALPRAZolam 0.5 MG TAB PO PRN (00:29)
[2024-03-03 07:50] VITALS: BP 125/76; PULSE 66; TEMP 98
--- NOTE | 2024-03-03 08:08 | P.PN ---
Subjective Progress Note Date: 03/03/24 The patient is a pleasant 78-year-old female patient with a past medical history significant for dyslipidemia was not on any lipid-lowering agents as well as hypertension presented to the hospital complaining of epigastric discomfort. She was in her usual state of health till yesterday when she started e xperiencing discomfort in the epigastric area and lower chest with radiation to the back. No associated symptoms of shortness of breath or dizziness or lightheadedness or any feeling of heart racing or fluttering or presyncope or syncope or edema in the lower extremities which he underwent further workup including chest x-ray came in to be unremarkable and CT scan of the chest showed no evidence of pulmonary embolism and also she underwent an EKG showed sinus mechanism with nonspecific ST and T wave abnormalities. The blood work definitely indicated acute coronary syndrome with elevation in the troponin. The physical examination is remarkable for stable vital signs with regular rate and rhythm and soft systolic murmur and clear breathing sounds bilaterally and no edema was noted in the lower extremities March 03, 2024 The patient was seen and evaluated this morning she is asymptomatic. She underwent yesterday PCI of the RCA. She is asymptomatic and she is bradycardic and with that being said I am going to DC metoprolol. She is on dual antiplatelet therapy along with high intensity statin. Physical examination is remarkable for regular rhythm with a soft systolic murmur and clear breathing sounds bilaterally and no edema was noted. Echo showed normal LV systolic funct ion Assessment Acute non-ST elevation myocardial infarction status post PCI of the RCA Hypertension Dyslipidemia Bradycardia Plan Continue the current medical regimen DC metoprolol in the light of bradycardia The patient can be discharged home Objective - Vital Signs Vital signs: Vital Signs Temp 98.0 F 03/03/24 07:49 Pulse 66 03/03/24 07:49 Resp 16 03/03/24 07:49 BP 125/76 03/03/24 07:49 Pulse Ox 97 03/03/24 07:49 FiO2 Intake & Output 03/02/24 03/03/24 03/03/24 18:59 06:59 18:59 Intake Total 658 Balance 658 Weight 77.9 kg Intake: IV 300 Oral 358 Other: Voiding Method Toilet Toilet # Voids 1 2 - Labs CBC & Chem 7: 03/02/24 06:32 03/01/24 09:56 Labs: Abnormal Lab Results - Last 24 Hours (Table) 03/02/24 Range/Units 06:32 Cholesterol 216.00 H (0.00-200.00) mg/dL LDL Cholesterol, Calc 140.8 H (0.0-131.0) mg/dL
[2024-03-03 08:34] LABS: African American GFR (CKD) >90 (>60 ml/min/1.73 sqM); Non-African American GFR(CKD) 82 (>60 ml/min/1.73 sqM)
[2024-03-03] MEDS ORDERED: ASPIRIN 81 MG PO SCH (09:00)
--- NOTE | 2024-03-03 14:16 | P.DS ---
Providers Date of admission: 03/01/24 14:35 Expected date of discharge: 03/03/24 Attending physician: Nikunj Nunn Consults: 03/01/24 14:02 Consult Physician Urgent Consulting Provider: Johnie Upton Consult Reason/Comments: chest pain Do you want consulting provider notified?: Yes 03/02/24 15:21 Consult Physician Routine Consulting Provider: [facility] Consult Reason/Comments: Post Interventional patient Do you want consulting provider notified?: Already Contacted Primary care physician: Nasreen Catherine MD Hospital Course: Chief Complaint: Epigastric and pain between shoulder blades This is a pleasant 78-year-old patient, follows with Dr. Nasreen Catherine. Chronic stable medical conditions include essential hypertension, hypothyroid, anxiety, IBS, seasonal allergies, GERD for which she does not take her medications. Patient yesterday made a large helping of goulash. She had a large portion of the same. Burdine some epigastric discomfort. That she had some more. She then developed pain between the shoulder blades lasting for couple of minutes. Also broke out into perspiration. Also developed epigastric discomfort. It kept bothering her decided to come into the ER. Given her presentation I spoke to the ER, midlevel podiatry provider Kris and a CT chest was ordered. Negative for PE. Spoke to radiologist Dr Clarke who reported no dissection Patient been an ex-smoker. Her niece is at the bedside. March 02: Saw the patient this morning. Up in the chair. No chest pain. Later this afternoon underwent a cardiac catheterization. Found to have a high- grade stenosis in the RCA that was successfully stented by Dr. Upton. March 03: Because of bradycardia cardiology did discontinue the metoprolol. Discussed with patient. Will follow-up outpatient with Dr. Upton. Questions answered. No cardiac symptoms Social history: Lives alone. Smoked less than a pack a day for about 25 years stopped in the mid 80s. Physical examination: VITAL SIGNS: 98, 66, 16, 125 x 76, 97% room air GENERAL: Sitting up in chair, comfortable EYES: Pupils equal. Conjunctiva felicia l. HEENT: External appearance of nose and ears normal, oral cavity grossly normal. NECK: JVD not raised; masses not palpable. HEART: First and second heart sounds are normal; no edema. LUNGS: Respiratory rate normal; clear to auscultation. ABDOMEN: Soft, nontender, liver spleen not palpable, no masses palpable. PSYCH: Alert and oriented x3; mood and affect felicia l. MUSCULOSKELETAL:No Clubbing/cyanosis;muscles-grossly intact INVESTIGATIONS, reviewed in the clinical context: 2D echo: EF 55 to 60%. March 02: White count 6.8 hemoglobin 13.8 platelets 229 LDL 140 March 01: White count 5.9 hemoglobin 14.3 platelets 232 sodium 138 potassium 4 BUN 19 creatinine 0.66 Troponin I 0.051, 0.097 UA: Negative. Lipase 217 EKG tracing personally reviewed by me-normal sinus rhythm. Mild ST depression in inferolateral leads. Chest x-ray film personally reviewed by me-hyperinflation CT abdomen pelvis: Abnormal appearance of the pancreatic head. Some nonspecific fat stranding within the mesentery. Chest CTA with contrast. Negative PE. Cardiomegaly. Discussed with radiologist Dr. Clarke-no dissection Assessment plan: -Acute non-Q wave TX. Cardiac risk factors include previous smoker. Postmenopausal. Essential hypertension. Troponins positive. EKG changes inferior leads 2D echo-: Preserved LV function Aspirin. Lopressor-discontinued because of bradycardia. Telemetry. IV heparin. -CAD with significant disease in the RCA. Successful stenting by Dr. Upton -COPD in a previous smoker Albuterol as needed -Hyperlipidemia, LDL 140 Lipitor 80 mg nightly started -GERD patient not taking his prescribed medications at home Protonix for 20 mg twice daily -Hypothyroid Synthroid and Cytomel -Essential hypertension Lopressor-discontinued Start Cozaar 25 mg nightly Disposition: Home Past Medical History Past Medical History: Cancer, Hypertension, Thyroid Disorder Additional Past Medical History / Comment(s): History of anxiety, irritable bowel syndrome and seasonal allergies. 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 Colonoscopy in 2010 and 2016. x2. Bilateral cataract surgery. Past Psychological History: Anxiety Smoking Status: Former smoker Past Alcohol Use History: None Reported Past Drug Use History: None Reported Plan - Discharge Summary Discharge Rx Participant: Yes New Discharge Prescriptions: New Aspirin 81 mg PO DAILY tab Nitroglycerin Sl Tabs [Nitrostat] 0.4 mg SUBLINGUAL Q5M PRN #30 tab PRN Reason: Chest Pain Ticagrelor [Brilinta] 90 mg PO BID #60 tab Atorvastatin [Lipitor] 80 mg PO HS #30 tab Continue Liothyronine Sodium [Cytomel] 5 mcg PO DAILY Levothyroxine Sodium [Synthroid] 75 mcg PO DAILY Cholecalciferol (Vitamin D3) [Vitamin D3] 50 mcg PO DAILY LORazepam [Ativan] 0.5 - 1 mg PO TID PRN PRN Reason: Anxiety Azelastine HCl [Optivar 0.05% Ophth Soln] 1 drop BOTH EYES BID Vit C/E/Zn/Coppr/Lutein/Zeaxan [Preservision Areds 2 Softgel] 1 tab PO BID Omeprazole 20 mg PO DAILY Ketorolac 0.5% Ophth Soln [Acular 0.5%] 1 drops BOTH EYES QID Collagen 1 cap PO DAILY Multivitamin/Iron/Folic Acid [Centrum Women Tablet] 1 tab PO DAILY Discontinued Spironolactone [Aldactone] 50 mg PO DAILY Discharge Medication List Cholecalciferol (Vitamin D3) [Vitamin D3] 50 mcg PO DAILY 09/01/17 [History] Levothyroxine Sodium [Synthroid] 75 mcg PO DAILY 09/01/17 [History] Liothyronine Sodium [Cytomel] 5 mcg PO DAILY 09/01/17 [History] LORazepam [Ativan] 0.5 - 1 mg PO TID PRN 09/06/17 [History] Azelastine HCl [Optivar 0.05% Ophth Soln] 1 drop BOTH EYES BID 12/31/19 [History] Vit C/E/Zn/Coppr/Lutein/Zeaxan [Preservision Areds 2 Softgel] 1 tab PO BID 12/31/19 [History] Collagen 1 cap PO DAILY 03/01/24 [History] Ketorolac 0.5% Ophth Soln [Acular 0.5%] 1 drops BOTH EYES QID 03/01/24 [History] Multivitamin/Iron/Folic Acid [Centrum Women Tablet] 1 tab PO DAILY 03/01/24 [History] Omeprazole 20 mg PO DAILY 03/01/24 [History] Aspirin 81 mg PO DAILY tab 03/03/24 [Rx] Atorvastatin [Lipitor] 80 mg PO HS #30 tab 03/03/24 [Rx] Nitroglycerin Sl Tabs [Nitrostat] 0.4 mg SUBLINGUAL Q5M PRN #30 tab 03/03/24 [Rx] Ticagrelor [Brilinta] 90 mg PO BID #60 tab 03/03/24 [Rx] Follow up Appointment(s)/Referral(s): Johnie Upton MD [STAFF PHYSICIAN] - 1 Week Nasreen Catherine MD [Primary Care Provider] - 1-2 days Patient Instructions/Handouts: *Surgery [facility] - After Heart Catheterization - [employer] Instructions Discharge Disposition: HOME SELF-CARE
[2024-03-03] MEDS ORDERED: ATORVASTATIN 80 MG TAB PO SCH (21:00)
== END 2024-03-03 11:51 | disposition home or self-care (01) | DRG 322 ==
LOC: EC 09:11 → 3SCARD 14:35
PROVIDERS: ADMIT Hospitalist; ATTEND Hospitalist
PROC: B240ZZ3 Ultrasonography of Single Coronary Artery, Intravascular (ICD-10-PCS; 2024-03-02)
PROC: 4A133B1 Monitoring of Arterial Pressure, Peripheral, Percutaneous Approach (ICD-10-PCS; 2024-03-02)
PROC: 4A133J1 Monitoring of Arterial Pulse, Peripheral, Percutaneous Approach (ICD-10-PCS; 2024-03-02)
PROC: 03HY32Z Insertion of Monitoring Device into Upper Artery, Percutaneous Approach (ICD-10-PCS; 2024-03-02)
PROC: 027034Z Dilation of Coronary Artery, One Artery with Drug-eluting Intraluminal Device, Percutaneous Approach (ICD-10-PCS; principal; 2024-03-02 14:00)
PROC: 4A023N7 Measurement of Cardiac Sampling and Pressure, Left Heart, Percutaneous Approach (ICD-10-PCS; 2024-03-02 14:00)
PROC: B2111ZZ Fluoroscopy of Multiple Coronary Arteries using Low Osmolar Contrast (ICD-10-PCS; 2024-03-02 14:00)
DX: I21.4 Non-ST elevation (NSTEMI) myocardial infarction (principal); I10 Essential (primary) hypertension; F41.9 Anxiety disorder, unspecified; E78.5 Hyperlipidemia, unspecified; E03.9 Hypothyroidism, unspecified; Z79.890 Hormone replacement therapy; J44.9 Chronic obstructive pulmonary disease, unspecified; I25.10 Atherosclerotic heart disease of native coronary artery without angina pectoris; J30.2 Other seasonal allergic rhinitis; K21.9 Gastro-esophageal reflux disease without esophagitis; K58.9 Irritable bowel syndrome, unspecified; Z79.82 Long term (current) use of aspirin; Z79.899 Other long term (current) drug therapy; Z80.0 Family history of malignant neoplasm of digestive organs; Z80.2 Family history of malignant neoplasm of other respiratory and intrathoracic organs; Z82.49 Family history of ischemic heart disease and other diseases of the circulatory system; Z83.3 Family history of diabetes mellitus; Z87.891 Personal history of nicotine dependence; Z91.011 Allergy to milk products; Z88.0 Allergy status to penicillin; Z91.018 Allergy to other foods; Z91.048 Other nonmedicinal substance allergy status; R00.1 Bradycardia, unspecified; Z98.42 Cataract extraction status, left eye; Z98.41 Cataract extraction status, right eye; Z88.2 Allergy status to sulfonamides; Z88.8 Allergy status to other drugs, medicaments and biological substances
CPT/HCPCS: 36415; 71046; 71275; 74019; 74177; 80053; 80061; 81003; 82565; 83605; 83690; 84484; 85025; 85610; 85730; 92978; 93005; 93306; 93458; 96361; 96365; 96366; 99291

== ENCOUNTER 2024-03-24 14:24 | Emergency (ER) | payer MEDICARE, OTHER ==
[2024-03-24 14:29] VITALS: TEMP 97.8
--- NOTE | 2024-03-24 14:51 | ED ---
General Adult HPI - General Chief complaint: Recheck/Abnormal Lab/Rx Stated complaint: hypertenstion Time Seen by Provider: 03/24/24 14:25 Source: patient, RN notes reviewed, old records reviewed Mode of arrival: ambulatory Limitations: no limitations - History of Present Illness Initial comments: This is a 78-year-old female who presents to the emergency department stating that ever since she has been on a statin she does not feel well. Patient states her anxiety is getting high and she took her blood pressure at home and it was elevated so she decided to come to the emergency department. Patient states she also feels a little fullness in her abdomen but there is no abdominal pain. Patient denies any chest pain or palpitations. Patient denies any difficulty breathing or shortness of breath. She states she is just been extremely anxious and she started the statin. Patient states she also had a bloody nose this morning. Patient denies any recent fever chills. Patient denies a headache patient [place] any blurred vision. Patient states 1 month ago she had a stent placed after having a DE - Related Data Home Medications Medication Instructions Recorded Confirmed Cholecalciferol (Vitamin D3) 50 mcg PO DAILY 09/01/17 03/01/24 [Vitamin D3] Levothyroxine Sodium [Synthroid] 75 mcg PO DAILY 09/01/17 03/01/24 Liothyronine Sodium [Cytomel] 5 mcg PO DAILY 09/01/17 03/01/24 LORazepam [Ativan] 0.5 - 1 mg PO TID PRN 09/06/17 03/01/24 Azelastine HCl [Optivar 0.05% 1 drop BOTH EYES BID 12/31/19 03/01/24 Ophth Soln] Vit C/E/Zn/Coppr/Lutein/Zeaxan 1 tab PO BID 12/31/19 03/01/24 [Preservision Areds 2 Softgel] Collagen 1 cap PO DAILY 03/01/24 03/01/24 Ketorolac 0.5% Ophth Soln [Acular 1 drops BOTH EYES QID 03/01/24 03/01/24 0.5%] Multivitamin/Iron/Folic Acid 1 tab PO DAILY 03/01/24 03/01/24 [Centrum Women Tablet] Omeprazole 20 mg PO DAILY 03/01/24 03/01/24 Previous Rx's Medication Instructions Recorded Aspirin 81 mg PO DAILY tab 03/03/24 Atorvastatin [Lipitor] 80 mg PO HS #30 tab 03/03/24 Losartan [Cozaar] 25 mg PO HS #30 tab 03/03/24 Nitroglycerin Sl Tabs [Nitrostat] 0.4 mg SUBLINGUAL Q5M PRN #30 tab 03/03/24 Ticagrelor [Brilinta] 90 mg PO BID #60 tab 03/03/24 Allergies Allergy/AdvReac Type Severity Reaction Status Date / Time Milk Containing Products Allergy Itching Verified 03/24/24 14:29 (Dairy) [Dairy] Penicillins Allergy Unknown Verified 03/24/24 14:29 soy Allergy Itching Verified 03/24/24 14:29 [id number] Reductase Allergy Rash/Hives Verified 03/24/24 14:29 Inhibitor Sulfa (Sulfonamide Allergy Unknown Verified 03/24/24 14:29 Antibiotics) sulfamethoxazole Allergy Unknown Verified 03/24/24 14:29 [From Bactrim] trimethoprim [From Bactrim] Allergy Unknown Verified 03/24/24 14:29 wheat Allergy Rash/Hives Verified 03/24/24 14:29 Review of Systems ROS Statement: Those systems with pertinent positive or pertinent negative responses have been documented in the HPI. ROS Other: All systems not noted in ROS Statement are negative. 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 Colonoscopy in 2010 and 2016. x2. Bilateral cataract surgery. Past Anesthesia/Blood Transfusion Reactions: No Reported Reaction Past Psychological History: Anxiety Smoking Status: Former smoker Past Alcohol Use History: None Reported Past Drug Use History: None Reported - Past Family History Brother(s) Additional Family Medical History / Comment(s): larynx cancer Father Family Medical History: Myocardial Infarction (DE) Additional Family Medical History / Comment(s): . Mother Family Medical History: Coronary Artery Disease (CAD), Diabetes Mellitus Son(s) Additional Family Medical History / Comment(s): Pancreatic cancer. Sister(s) Family Medical History: Congestive Heart Failure (CHF), Hypertension General Exam - General Exam Comments Initial Comments: GENERAL: Patient is well-developed and well-nourished. Patient is nontoxic and well- hydrated and is in no acute distress. ENT: Neck is soft and supple. No significant lymphadenopathy is noted. Oropharynx is clear. Moist mucous membranes. Neck has full range of motion without eliciting any pain. EYES: The sclera were anicteric and conjunctiva were pink and moist. Extraocular movements were intact and pupils were equal round and reactive to light. Eyelids were unremarkable. PULMONARY: Unlabored respirations. Good breath sounds bilaterally. No audible rales rhonchi or wheezing was noted. CARDIOVASCULAR: There is a regular rate and rhythm without any murmurs gallops or rubs. ABDOMEN: Soft and nontender with normal bowel sounds. SKIN: Skin is clear with no lesions or rashes and otherwise unremarkable. NEUROLOGIC: Patient is alert and oriented x3. Cranial nerves II through XII are grossly intact. Motor and sensory are also intact. Normal speech, volume and content. Symmetrical smile. MUSCULOSKELETAL: Normal extremities with adequate strength and full range of motion. No lower extremity swelling or edema. No calf tenderness. LYMPHATICS: No significant lymphadenopathy is noted PSYCHIATRIC: Mildly anxious Limitations: no limitations Course Vital Signs 03/24/24 03/24/24 03/24/24 14:25 17:13 18:41 Temperature 97.8 F Pulse Rate 108 H 81 82 Respiratory 20 16 18 Rate Blood Pressure 216/93 179/92 196/96 O2 Sat by Pulse 97 98 97 Oximetry 03/24/24 19:00 Temperature Pulse Rate 71 Respiratory 14 Rate Blood Pressure 176/83 O2 Sat by Pulse 98 Oximetry Medical Decision Making - Medical Decision Making EKG is interpreted by myself. EKG shows sinus rhythm at 88 bpm TN interval is 165 QRS is 88 QT interval 361 QTc is 406. Patient's EKG shows no ST segment jojo vation Was pt. sent in by a medical professional or institution (, PA, PROJECT CREW WORKER, urgent care, hospital, or alf...) When possible be specific @ -No Did you speak to anyone other than the patient for history (EMS, parent, family, police, friend...)? What history was obtained from this source @ -No Did you review nursing and triage notes (agree or disagree)? Why? @ -I reviewed and agree with nursing and triage notes Were old charts reviewed (outside hosp., previous admission, EMS record, old EKG, old radiological studies, urgent care reports/EKG's, alf records)? Report findings @ -No old charts were reviewed Differential Diagnosis? @ -Anxiety, hypertension, hypertensive urgency, med reaction, this is not an all-inclusive list EKG interpreted by me (3pts min.). @ -As above X-rays interpreted by me (1pt min.). @ -X-ray shows no acute normality CT interpreted by me (1pt min.). @ -None done U/S interpreted by me (1pt. min.). @ -None done What testing was considered but not performed or refused? (CT, X-rays, U/S, labs)? Why? @ -None What meds were considered but not given or refused? Why? @ -None Did you discuss the management of the patient with other professionals (pr ofessionals i.e. , PA, PROJECT CREW WORKER, lab, RT, psych nurse, social worker psychiatric, dry cleaning supervisor, teacher, transport corps officer, rn case management)? Give summary @ -No Was smoking cessation discussed for >3mins.? @ -No Was critical care preformed (if so, how long)? @ -No Were there social determinants of health that impacted care today? How? (Homelessness, low income, unemployed, alcoholism, drug addiction, transportation, low edu. Level, literacy, decrease access to med. care, senior living, rehab)? @ -No Was there de-escalation of care discussed even if they declined (Discuss DNR or withdrawal of care, Hospice)? DNR status @ -No What co-morbidities impacted this encounter? (DM, HTN, Smoking, COPD, CAD, Cancer, CVA, ARF, Chemo, Hep., AIDS, mental health diagnosis, sleep apnea, morbid obesity)? @ -None Was patient admitted / discharged? Hospital course, mention meds given and route, prescriptions, significant lab abnormalities, going to OR and other pertinent info. @ -Patient received 10 of hydralazine Ativan while in the emergency department she is feeling considerably better pressure came down to a reasonable range and she will follow-up with her primary medical care doctor to see if she needs to be on any hypertensive medication Undiagnosed new problem with uncertain prognosis? @ -No Drug Therapy requiring intensive monitoring for toxicity (Heparin, Nitro, Insulin, Cardizem)? @ -No Were any procedures done? @ -No Diagnosis/symptom? @ -Hypertension urgency Acute, or Chronic, or Acute on Chronic? @ -Default Uncomplicated (without systemic symptoms) or Complicated (systemic symptoms)? @ -Complicated Side effects of treatment? @ -No Exacerbation, Progression, or Severe Exacerbation? @ -No Poses a threat to life or bodily function? How? (Chest pain, USA, DE, pneumonia, PE, COPD, DKA, ARF, appy, cholecystitis, CVA, Diverticulitis, Homicidal, Suicidal, threat to staff... and all critical care pts) @ -No Diagnosis/symptom? @ -Anxiety Acute, or Chronic, or Acute on Chronic? @ -Acute Uncomplicated (without systemic symptoms) or Complicated (systemic symptoms)? @ -Uncomplicated Side effects of treatment? @ -None Exacerbation, Progression, or Severe Exacerbation] @ -No Poses a threat to life or bodily function? @ -No - Lab Data Result diagrams: 03/24/24 14:59 03/24/24 14:59 Lab Results 03/24/24 03/24/24 03/24/24 Range/Units 14:59 14:59 14:59 WBC 6.7 (3.8-10.6) k/uL RBC 4.47 (3.80-5.40) m/uL Hgb 13.7 (11.4-16.0) gm/dL Hct 40.0 (34.0-46.0) % MCV 89.4 (80.0-100.0) fL MCH 30.6 (25.0-35.0) pg MCHC 34.2 (31.0-37.0) g/dL RDW 12.5 (11.5-15.5) % Plt Count 299 (150-450) k/uL MPV 8.5 Neutrophils % 64 % Lymphocytes % 27 % Monocytes % 5 % Eosinophils % 2 % Basophils % 0 % Neutrophils # 4.3 (1.3-7.7) k/uL Lymphocytes # 1.8 (1.0-4.8) k/uL Monocytes # 0.4 (0-1.0) k/uL Eosinophils # 0.1 (0-0.7) k/uL Basophils # 0.0 (0-0.2) k/uL PT 10.6 (10.0-12.5) sec INR 1.0 (<1.2) APTT 26.0 (22.0-30.0) sec Sodium 140 (137-145) mmol/L Potassium 3.5 (3.5-5.1) mmol/L Chloride 106 (98-107) mmol/L Carbon Dioxide 27 (22-30) mmol/L Anion Gap 7 mmol/L BUN 14 (7-17) mg/dL Creatinine 0.51 L (0.52-1.04) mg/dL Est GFR (CKD-EPI)AfAm >90 (>60 ml/min/1.73 sqM) Est GFR (CKD-EPI)NonAf >90 (>60 ml/min/1.73 sqM) Glucose 139 H (74-99) mg/dL Calcium 9.8 (8.4-10.2) mg/dL Magnesium 1.9 (1.6-2.3) mg/dL Total Bilirubin 1.0 (0.2-1.3) mg/dL AST 34 (14-36) U/L ALT 22 (4-34) U/L Alkaline Phosphatase 146 H (38-126) U/L Troponin I (0.000-0.034) ng/mL Total Protein 7.1 (6.3-8.2) g/dL Albumin 4.2 (3.5-5.0) g/dL Serum Alcohol <10 mg/dL 03/24/24 Range/Units 14:59 WBC (3.8-10.6) k/uL RBC (3.80-5.40) m/uL Hgb (11.4-16.0) gm/dL Hct (34.0-46.0) % MCV (80.0-100.0) fL MCH (25.0-35.0) pg MCHC (31.0-37.0) g/dL RDW (11.5-15.5) % Plt Count (150-450) k/uL MPV Neutrophils % % Lymphocytes % % Monocytes % % Eosinophils % % Basophils % % Neutrophils # (1.3-7.7) k/uL Lymphocytes # (1.0-4.8) k/uL Monocytes # (0-1.0) k/uL Eosinophils # (0-0.7) k/uL Basophils # (0-0.2) k/uL PT (10.0-12.5) sec INR (<1.2) APTT (22.0-30.0) sec Sodium (137-145) mmol/L Potassium (3.5-5.1) mmol/L Chloride (98-107) mmol/L Carbon Dioxide (22-30) mmol/L Anion Gap mmol/L BUN (7-17) mg/dL Creatinine (0.52-1.04) mg/dL Est GFR (CKD-EPI)AfAm (>60 ml/min/1.73 sqM) Est GFR (CKD-EPI)NonAf (>60 ml/min/1.73 sqM) Glucose (74-99) mg/dL Calcium (8.4-10.2) mg/dL Magnesium (1.6-2.3) mg/dL Total Bilirubin (0.2-1.3) mg/dL AST (14-36) U/L ALT (4-34) U/L Alkaline Phosphatase (38-126) U/L Troponin I <0.012 (0.000-0.034) ng/mL Total Protein (6.3-8.2) g/dL Albumin (3.5-5.0) g/dL Serum Alcohol mg/dL Disposition Clinical Impression: Hypertensive urgency, Anxiety Disposition: HOME SELF-CARE Condition: Good Instructions (If sedation given, give patient instructions): Hypertension (ED) Is patient prescribed a controlled substance at d/c from ED?: No Referrals: Nasreen Catherine MD [Primary Care Provider] - 1-2 days Time of Disposition: 19:05
[2024-03-24 15:22] LABS: Basophils % (A) 0 %; Eosinophils # (A) 0.1 k/uL (0-0.7); Eosinophils % (A) 2 %; HGB 13.7 gm/dL (11.4-16.0); Lymphocytes # (A) 1.8 k/uL (1.0-4.8); Lymphocytes % (A) 27 %; MCH 30.6 pg (25.0-35.0); MCHC 34.2 g/dL (31.0-37.0); MCV 89.4 fL (80.0-100.0); Mean Platelet Volume 8.5; Monocytes # (A) 0.4 k/uL (0-1.0); Monocytes % (A) 5 %; Neutrophils # (A) 4.3 k/uL (1.3-7.7); Neutrophils % (A) 64 %; Platelet Count 299 k/uL (150-450); RBC 4.47 m/uL (3.80-5.40); RDW 12.5 % (11.5-15.5); WBC 6.7 k/uL (3.8-10.6)
[2024-03-24 15:31] LABS: ALT 22 U/L (4-34); African American GFR (CKD) >90 (>60 ml/min/1.73 sqM); Albumin 4.2 g/dL (3.5-5.0); Alcohol <10 mg/dL; Anion Gap 7 mmol/L; Blood Urea Nitrogen 14 mg/dL (7-17); Calcium 9.8 mg/dL (8.4-10.2); Carbon Dioxide 27 mmol/L (22-30); Chloride 106 mmol/L (98-107); Glucose 139 mg/dL (74-99); Non-African American GFR(CKD) >90 (>60 ml/min/1.73 sqM); Sodium 140 mmol/L (137-145); Total Protein 7.1 g/dL (6.3-8.2)
[2024-03-24 15:35] LABS: AST 34 U/L (14-36); Alkaline Phosphatase 146 U/L (38-126); Magnesium 1.9 mg/dL (1.6-2.3); Potassium 3.5 mmol/L (3.5-5.1)
[2024-03-24] MEDS: LORazepam 2 MG/ML INJ IV STA (15:37)
[2024-03-24] MEDS: KETOROLAC 15 MG/ML 1 ML VIAL IVP STA (15:37)
[2024-03-24 15:38] LABS: Prothrombin Time 10.6 sec (10.0-12.5)
--- NOTE | 2024-03-24 17:37 | XR ---
EXAMINATION TYPE: XR chest 2V DATE OF EXAM: 03/24/2024 5:32 PM CLINICAL INDICATION: Female, 78 years old with history of Chest Pain; COMPARISON: 03/01/2024 TECHNIQUE: XR chest 2V Frontal view of the chest. FINDINGS: Lungs/Pleura: There is no evidence of pleural effusion, focal consolidation, or pneumothorax. Pulmonary vascularity: Unremarkable. Heart/mediastinum: Cardiomediastinal silhouette is unremarkable. Atherosclerotic calcifications are seen in the aorta. Musculoskeletal: No acute osseous pathology. IMPRESSION: No acute cardiopulmonary disease/process. [facility], , 03/24/2024 5:35 PM
[2024-03-24] MEDS: hydrALAZINE HCL 20 MG/ML 1 ML VIAL IVP STA (18:35)
[2024-03-24 19:03] VITALS: BP 176/83; PULSE 71; RESP 14
== END 2024-03-24 19:41 | disposition home or self-care (01) ==
LOC: EC 14:24
CPT/HCPCS: 36415; 71046; 80053; 80320; 83735; 84484; 85025; 85610; 85730; 93005; 96374; 96375; 99284

== ENCOUNTER → 2024-07-16 | Outpatient (CLI) | payer MEDICARE, OTHER ==
--- NOTE | 2024-07-16 08:42 | MM ---
Reason for Exam: Screening (asymptomatic). Last mammogram was performed 1 year(s) and 2 month(s) ago. Patient History: Menarche at age 18. First Full-Term at age 18. Left ovary removed at age 56. Postmenopausal. Risk Values: Rupali 5 year model risk: 1.1%. NCI Lifetime model risk: 1.7%. Prior Study Comparison: 02/02/2021 Bilateral Screening Mammogram, [facility]. 04/19/2022 Bilateral MG 3D screening mammo w/cad, [facility]. 05/16/2023 Bilateral MG 3D screening mammo w/cad, [facility]. Tissue Density: There are scattered areas of fibroglandular density. Findings: Analyzed By CAD. Right breast: There is no suspicious group of microcalcifications or new suspicious mass. Left breast: There is no suspicious group of microcalcifications or new suspicious mass. Overall Assessment: Negative, BI-RAD 1 Management: Screening Mammogram of both breasts in [address] [facility] will attempt to contact patient to return for supplemental views and ultrasound if indicated. Patient should continue monthly self-breast exams. A clinical breast exam by your physician is recommended on an annual basis. This exam should not preclude additional follow-up of suspicious palpable abnormalities. Note on Rupali scores and lifetime risk: 1. A Rupali score greater than 3% is considered moderate risk. If this is the case, consider specialist referral to assess eligibility for a risk reducing agent. 2. If overall lifetime risk for the development of breast cancer is 20% or higher, the patient may qualify for future screening with alternating mammogram and breast MRI. [facility], , 07/16/2024 8:39 AM. Electronically signed and approved by: Robb Marquez DO
--- NOTE | 2024-07-16 08:47 | BD ---
EXAMINATION TYPE: Axial Bone Density DATE OF EXAM: 07/16/2024 CLINICAL HISTORY: 79 years old Female. ICD-10 CODE: M81.0 AGE-RELATED OSTEOPOROSIS , Additional Hist ory: Height: 5 ft 4 in Weight: 162 FRAX RISK QUESTIONS: Alcohol (3 or more units per day): no Family History (Parent hip fracture): no Glucocorticoids (More than 3mos): no (Ex: prednisone, prednisolone, methylprednisolone, dexamethasone, and hydrocortisone). History of Fracture in Adulthood: no Secondary Osteoporosis: 1. Type 1 Diabetes: type 2 2. Hyperthyroidism: no 3. Menopause before 45: yes 4. Malnutrition: no 5. Chronic liver disease: no Rheumatoid Arthritis: no Current Tobacco Use: no RISK FACTORS HISTORY OF: Surgery to Spine/Hip(right/left)/Wrist (right/left): no MEDICATIONS: Thyroid Medications: yes Which medication: synthroid How Lon-6 years Osteoporosis Medications: none EXAM MEASUREMENTS: Bone mineral densitometry was performed using the [employer] System. Bone mineral density as measured about the Lumbar spine is: ----- L1-L4(G/cm2): 0.995 T Score Values are as follows: ----- L1: -1.6 ----- L2: -1.9 ----- L3: -1.7 ----- L4: -1.2 ----- L1-L4: -1.5 Z Score Values are as follows: ----- L1: 0.0 ----- L2: -0.4 ----- L3: -0.1 ----- L4: 0.4 ----- L1-L4: 0.0 Bone mineral density has: decreased -8.9 % since study of: 2020 Bone mineral density about the R hip (g/cm2): 0.817 Bone mineral density about the L hip (g/cm2): 0.902 T Score values are as follows: -----R Neck: -1.6 -----L Neck: -1.0 -----R Total: -1.9 -----L Total: -1.3 Z Score values are as follows: -----R Neck: 0.4 -----L Neck: 1.0 -----R Total: 0.0 -----L Total: 0.5 Bone mineral density has: decreased -8.3 % since study of: 2020 FRAX%s: The graph provided illustrates a 20.1 % chance for a major osteoporotic fx and a 4.5 % chance for the hips probability for fx in 10 years time. IMPRESSION: Osteopenia (T Score between -2.5 and -1). There is slightly increased risk of fracture and the patient may be considered for treatment. Re-Screen 2-5 years. NOTE: T-SCORE=SD OF THE YOUNG ADULT MEAN. [facility], , 07/16/2024 8:45 AM
== END | disposition home or self-care (01) ==
LOC: RADMAMWWP 07:59
PROVIDERS: ATTEND Family Medicine
DX: Z12.31 Encounter for screening mammogram for malignant neoplasm of breast (principal); R92.323 Mammographic fibroglandular density, bilateral breasts; M81.0 Age-related osteoporosis without current pathological fracture; E10.9 Type 1 diabetes mellitus without complications; Z78.0 Asymptomatic menopausal state; Z90.721 Acquired absence of ovaries, unilateral; M85.89 Other specified disorders of bone density and structure, multiple sites
CPT/HCPCS: 77063; 77067; 77080